=== PATIENT | female | born 1975 | race Asian ===

== ENCOUNTER 2018-12-10 19:37 | Emergency (ER) | payer OTHER ==
--- NOTE | 2018-12-10 19:45 | UC ---
Skin Complaint HPI - HPI Summary HPI Summary: 42 yo right handed female presents with b/l hand pain R>L for the last 4 months. She tells me that she works as a [employer] and for the last 4 months has noticed b/l hand pain with intermittent tingling/numbness in her right thumb and index finger. Pain is worse after using and later in the day. She was seen by her PCP for this and told she had tendinitis and to try taking NSAIDs - she has done this with little relief. Denies specific injury. No elbow, shoulder, or neck pain. Her BP is elevated today. She does have a dx of HTN and has seen her PCP for this, but does not take any medications. She is not having any headaches, dizziness, nausea, vomiting, weakness, SOB, or chest pain. - History of Current Complaint Time Seen by Provider: 12/10/18 19:45 Stated Complaint: ARM PAIN, SWELLING Hx Obtained From: Patient Onset/Duration: Gradual Onset Onset Severity: Mild Current Severity: Mild Pain Intensity: 3 Pain Scale Used: 0-10 Numeric - Allergy/Home Medications Allergies/Adverse Reactions: Allergies Allergy/AdvReac Type Severity Reaction Status Date / Time No Known Allergies Allergy Verified 12/10/18 19:48 Home Medications: Home Medications NK [No Home Medications Reported] 12/10/18 [History Confirmed 12/10/18] PMH/Surg Hx/FS Hx/Imm Hx Cardiovascular History: Hypertension - Surgical History Surgical History: Yes Surgery Procedure, Year, and Place: DENTAL - Family History Known Family History: Positive: Cardiac Disease - Social History Occupation: Employed Full-time Lives: With Family Alcohol Use: None Substance Use Type: None Smoking Status (MU): Never Smoked Tobacco Review of Systems All Other Systems Reviewed And Are Negative: Yes Constitutional: Positive: Negative Skin: Positive: Negative Respiratory: Positive: Negative Cardiovascular: Positive: Negative Neurovascular: Positive: Negative Musculoskeletal: Positive: Other: - b/l hand pain Neurological: Positive: Negative Psychological: Positive: Negative Physical Exam - Summary Physical Exam Summary: GENERAL: NAD. WDWN. No pain distress. SKIN: No rashes, sores, lesions, or open wounds. CHEST: No accessory muscle use. Breathing comfortably and in no distress. CV: Pulses intact radial and ulnar. Cap refill <2seconds MSK: RIGHT WRIST: NTTP. FROM. Strength 5/5 including logger strength. No edema or obvious bony deformities. No snuffbox tenderness. Tinel and phalen positive. LEFT WRIST: NTTP. FROM. Strength 5/5 including logger strength. No edema or obvious bony deformities. No snuffbox tenderness. Tinel and phalen weakly positive. B/L hands: moves all digits FROM without pain. NTTP. NEURO: Alert. Sensations intact hand and all fingers. PSYCH: Age appropriate behavior. Triage Information Reviewed: Yes Vital Signs: Vital Signs: Temp Pulse Resp BP Pulse Ox 98.7 F 84 16 167/105 100 12/10/18 19:45 12/10/18 19:45 12/10/18 19:45 12/10/18 19:45 12/10/18 19:45 Vital Signs Reviewed: Yes Course/Dx - Course Course Of Treatment: XR b/l hands: wet read by myself is negative for acute process at hands or wrists. Suspect mild/early carpal tunnel. She has a wrist brace that she uses, but has not had much relief from this. Advised to rest, apply ice, continue NSAIDs, and continue using her wrist brace. She is requesting a referral to [facility], thus will refer her there for further eval and treatment. Regarding her elevated BP - she does have a dx of HTN, but does not take any medications for this. Recheck BP manually was similar to initial. She is having no symptoms related to her HTN, thus will have her f/u with her PCP for BP control. - Diagnoses Provider Diagnosis: Carpal tunnel syndrome of right wrist Discharge - Sign-Out/Discharge Documenting (check all that apply): Patient Departure All imaging exams completed and their final reports reviewed: No - Discharge Plan Condition: Stable Disposition: HOME Referrals: Andrey Corrales MD [Primary Care Provider] - Tina CARSON,Ponce Alvarado [Medical Doctor] - As Soon As Possible Additional Instructions: If you develop a fever, shortness of breath, chest pain, new or worsening symptoms - please call your PCP or go to the ED immediately. Your blood pressure was high at todays visit. Please see your primary provider within 4 weeks for recheck and re-evaluation. Your X-Rays were normal today. Please call Orthopedics at the number below to schedule an appointment within 1 month for further treatment. - Billing Disposition and Condition Condition: STABLE Disposition: Home - Attestation Statements Provider Attestation: This patient was note seen by me. I was available for consult. IDANIA
[2018-12-10 19:54] VITALS: BP 168/108
--- NOTE | 2018-12-11 07:49 | UC ---
- Progress Note Progress Note: Reviewed imaging, x-ray only notable for soft tissue swelling. No change in management. - EKG/XRAY/CT XRAY: hand Course/Dx - Diagnoses Provider Diagnoses: Carpal tunnel syndrome of right wrist Discharge - Sign-Out/Discharge Documenting (check all that apply): Post-Discharge Follow Up All imaging exams completed and their final reports reviewed: Yes - Discharge Plan Condition: Stable Disposition: HOME Referrals: Andrey Corrales MD [Primary Care Provider] - Tina CARSON,Ponce Alvarado [Medical Doctor] - As Soon As Possible Additional Instructions: If you develop a fever, shortness of breath, chest pain, new or worsening symptoms - please call your PCP or go to the ED immediately. Your blood pressure was high at todays visit. Please see your primary provider within 4 weeks for recheck and re-evaluation. Your X-Rays were normal today. Please call Orthopedics at the number below to schedule an appointment within 1 month for further treatment. - Billing Disposition and Condition Condition: STABLE Disposition: Home
== END 2018-12-10 20:14 | disposition home or self-care (01) ==
LOC: UCEAST 19:37
DX: G56.01 Carpal tunnel syndrome, right upper limb (principal); I10 Essential (primary) hypertension
CPT/HCPCS: 99211; G0463

== ENCOUNTER → 2019-02-04 17:45 | Emergency (ER) | payer OTHER ==
[2019-02-04 17:50] VITALS: BP 188/124
--- NOTE | 2019-02-04 19:08 | ED ---
Upper Extremity Pain - HPI Summary HPI Summary: Patient complains of intermittent right forearm pain 2 months, worse today. Denies trauma. History of tendinitis. Denies fever, cough, sore throat, CP, SOB, N/V city, dull pain, change in urine, change in BM. Denies medical history. - History of Current Complaint Chief Complaint: EDExtremityUpper Stated Complaint: RT HAND INJURY PER PT Time Seen by Provider: 02/04/19 18:32 Hx Obtained From: Patient Hx Last Menstrual Period: BEGINNING NOVEMBER Mechanism Of Injury: Unknown Onset/Duration: Started Weeks Ago Timing: Intermittent Severity Initially: Mild Severity Currently: Moderate Pain Location: Forearm Character: Dull, Aching, Throbbing Aggravating Factor(s): Movement, Flexion Alleviating Factor(s): Nothing Associated Signs & Symptoms: Positive: Negative - Allergies/Home Medications Allergies/Adverse Reactions: Allergies Allergy/AdvReac Type Severity Reaction Status Date / Time No Known Allergies Allergy Verified 02/04/19 17:47 Home Medications: Home Medications Levothyroxine TAB* [Synthroid TAB*] 50 mcg PO DAILY 02/04/19 [History Confirmed 02/04/19] PMH/Surg Hx/FS Hx/Imm Hx Endocrine/Hematology History: Denies: Hx Anticoagulant Therapy Cardiovascular History: Denies: Hx Pacemaker/ICD Respiratory History: Reports: Hx Asthma - seasonal History: Denies: Hx Dialysis Sensory History: Denies: Hx Eye Prosthesis Opthamlomology History: Denies: Hx Legally Blind EENT History: Denies: Hx Deafness Neurological History: Denies: Hx Dementia - Surgical History Surgery Procedure, Year, and Place: DENTAL Infectious Disease History: No Infectious Disease History: Denies: Traveled Outside the [place] in Last 30 Days - Family History Known Family History: Positive: Cardiac Disease - Social History Alcohol Use: None Substance Use Type: Reports: None Smoking Status (MU): Never Smoked Tobacco Review of Systems Constitutional: Negative Eyes: Negative ENT: Negative Cardiovascular: Negative Respiratory: Negative Gastrointestinal: Negative Genitourinary: Negative Musculoskeletal: Other Skin: Negative Neurological: Negative Psychological: Normal All Other Systems Reviewed And Are Negative: Yes Physical Exam - Summary Physical Exam Summary: No ecchymosis, erythema, deformity, swelling, and extra warmth noted to right upper extremity. Normal flexion and extension of fingers and wrist of right hand. Pain with flexion of right elbow with hand in palm down position. Otherwise Normal flexion and extension of right elbow and right shoulder. No pain with palpation of right forearm. PMS intact distally. Triage Information Reviewed: Yes Vital Signs On Initial Exam: Initial Vitals Temp Pulse Resp BP Pulse Ox 98.8 F 76 15 188/124 100 02/04/19 17:47 02/04/19 17:47 02/04/19 17:47 02/04/19 17:47 02/04/19 17:47 Vital Signs Reviewed: Yes Appearance: Positive: Well-Appearing Skin: Positive: Warm Head/Face: Positive: Normal Head/Face Inspection Eyes: Positive: Normal Neck: Positive: Supple Respiratory/Lung Sounds: Positive: Clear to Auscultation Cardiovascular: Positive: Normal Abdomen Description: Positive: Nontender Musculoskeletal: Positive: Normal Neurological: Positive: Normal Psychiatric: Positive: Normal AVPU Assessment: Alert - Bandar Coma Scale Best Eye Response: 4 - Spontaneous Best Motor Response: 6 - Obeys Commands Best Verbal Response: 5 - Oriented Coma Scale Total: 15 Diagnostics - Vital Signs Vital Signs Temp Pulse Resp BP Pulse Ox 02/04/19 17:47 98.8 F 76 15 188/124 100 - Laboratory Lab Statement: Any lab studies that have been ordered have been reviewed, and results considered in the medical decision making process. Course/Dx - Course Course Of Treatment: Patient complains of intermittent right forearm pain 2 months, worse today. Denies trauma. History of tendinitis. Denies fever, cough, sore throat, CP, SOB, N/V city, dull pain, change in urine, change in BM. Denies medical history. Vital signs within normal limits. Symptoms consistent with tendinitis. - Diagnoses Provider Diagnoses: Right tennis elbow Discharge ED - Sign-Out/Discharge Documenting (check all that apply): Patient Departure Patient Received Moderate/Deep Sedation with Procedure: No - Discharge Plan Condition: Stable Disposition: HOME Patient Education Materials: Tennis Elbow (ED) Referrals: Andrey Corrales MD [Primary Care Provider] - Kemar Evans MD [Medical Doctor] - Additional Instructions: Rest your right arm. Take ibuprofen 600 mg every 6 hours for 2 days. Wear a tennis elbow brace that you can get at any pharmacy, especially when you sleep. If symptoms persist more than 2 weeks follow-up with orthopedics Dr. Evans for further evaluation. - Billing Disposition and Condition Condition: STABLE Disposition: Home - Attestation Statements Provider Attestation: I was available for consultation for this patient. I did not evaluate the patient, or participate in any medical decision making or disposition decisions unless I am specifically named in the chart as having consulted on the patient. If I have consulted on the patient, please see my own ED note on the patient encounter. Poncho Verdugo MD
== END | disposition home or self-care (01) ==
LOC: ED 17:45
DX: M77.11 Lateral epicondylitis, right elbow (principal); Z79.899 Other long term (current) drug therapy
CPT/HCPCS: 99281

== ENCOUNTER 2019-02-09 13:57 | Emergency (ER) | payer OTHER ==
[2019-02-09 14:13] VITALS: BP 168/100
== END 2019-02-09 15:37 | disposition left against medical advice (07) ==
LOC: ED 13:57
DX: Z53.21 Procedure and treatment not carried out due to patient leaving prior to being seen by health care provider (principal)
CPT/HCPCS: 99281

== ENCOUNTER 2019-02-12 07:55 | Emergency (ER) | payer OTHER ==
[2019-02-12] MEDS ORDERED: Dexamethasone IV* 4 MG/ML 1 ML (4 MG) IM ONE (08:35)
[2019-02-12] MEDS ORDERED: Ketorolac *IM* INJ* 60 MG/2 ML VIAL IM ONE (08:35)
--- NOTE | 2019-02-12 08:42 | ED ---
Upper Extremity Pain - HPI Summary HPI Summary: Pt is a 43 y/o F presenting to the ED with a chief complaint of R arm pain initially onset a couple of days ago. She states she swung her R arm backwards and heard a click, and the pain has since not gone away. She reports pain in the upper arm and elbow, and weakness in her forearm. - History of Current Complaint Chief Complaint: EDExtremityUpper Stated Complaint: ELBOW PAIN PER PT Time Seen by Provider: 02/12/19 08:23 Hx Obtained From: Patient Hx Last Menstrual Period: BEGINNING NOVEMBER Mechanism Of Injury: Unknown Onset/Duration: Started Days Ago, Still Present Timing: Constant, Lasting Days Severity Initially: Moderate Severity Currently: Moderate Pain Location: Elbow, Forearm Character: Aching Aggravating Factor(s): Nothing Alleviating Factor(s): Nothing Associated Signs & Symptoms: Positive: Weakness - Allergies/Home Medications Allergies/Adverse Reactions: Allergies Allergy/AdvReac Type Severity Reaction Status Date / Time amoxicillin Allergy GI Upset Verified 02/12/19 08:01 PMH/Surg Hx/FS Hx/Imm Hx Previously Healthy: Yes Endocrine/Hematology History: Denies: Hx Anticoagulant Therapy Cardiovascular History: Denies: Hx Pacemaker/ICD Respiratory History: Reports: Hx Asthma - seasonal History: Denies: Hx Dialysis Sensory History: Denies: Hx Eye Prosthesis, Hx Legally Blind, Hx Deafness Opthamlomology History: Denies: Hx Eye Prosthesis, Hx Legally Blind Neurological History: Denies: Hx Dementia - Surgical History Surgery Procedure, Year, and Place: DENTAL Infectious Disease History: No Infectious Disease History: Denies: Traveled Outside the [place] in Last 30 Days - Family History Known Family History: Positive: Cardiac Disease - Social History Alcohol Use: None Hx Substance Use: No Substance Use Type: Reports: None Hx Tobacco Use: No Smoking Status (MU): Never Smoked Tobacco Review of Systems Positive: Myalgia Positive: Weakness All Other Systems Reviewed And Are Negative: Yes Physical Exam - Summary Physical Exam Summary: VITAL SIGNS: Reviewed. GENERAL: Patient is a well-developed and nourished female who is lying comfortable in the stretcher. Patient is not in any acute respiratory distress. HEAD AND FACE: No signs of trauma. No ecchymosis, hematomas or skull depressions. No sinus tenderness. EYES: PERRLA, EOMI x 2, No injected conjunctiva, no nystagmus. EARS: Hearing grossly intact. Ear canals and tympanic membranes are within normal limits. MOUTH: Oropharynx within normal limits. NECK: Supple, trachea is midline, no adenopathy, no JVD, no carotid bruit, no c- spine tenderness, neck with full ROM. CHEST: Symmetric, no tenderness at palpation. LUNGS: Clear to auscultation bilaterally. No wheezing or crackles. CVS: Regular rate and rhythm, S1 and S2 present, no murmurs or gallops appreciated. ABDOMEN: Soft, non-tender. No signs of distention. No rebound, no guarding, and no masses palpated. Bowel sounds are normal. EXTREMITIES: FROM in all major joints, no edema, no cyanosis or clubbing. No deformity, weakness, or hematomas. There are good pulses and good capillary refill. NEURO: Alert and oriented x 3. No acute neurological deficits. Speech is normal and follows commands. SKIN: Dry and warm. Triage Information Reviewed: Yes Vital Signs On Initial Exam: Initial Vitals Temp Pulse Resp BP Pulse Ox 98.9 F 87 18 156/114 98 02/12/19 07:58 02/12/19 07:58 02/12/19 07:58 02/12/19 07:58 02/12/19 07:58 Vital Signs Reviewed: Yes Diagnostics - Vital Signs Vital Signs Temp Pulse Resp BP Pulse Ox 02/12/19 07:58 98.9 F 87 18 156/114 98 - Laboratory Lab Statement: Any lab studies that have been ordered have been reviewed, and results considered in the medical decision making process. - Radiology Elbow XR Radiology Interpretation Completed By: Radiologist Summary of Radiographic Findings: No acute osseous injury. If symptoms persist, recommend repeat imaging. ED physician has reviewed this report. - Ultrasound RUE US Ultrasound Interpretation Completed By: Radiologist Summary of Ultrasound Findings: No R upper extremity DVT. ED physician has reviewed this report. Course/Dx - Course Assessment/Plan: Patient is a 43-year-old female who presents to the emergency department with a chief complaint of right upper extremity pain. She reports that the pain is mostly in the right elbow. Right elbow x-ray impression: No acute injury. Right upper extremity ultrasound impression: No right upper extremity DVT. In the ED course the patient was given Toradol and Decadron. After these medications the patient has significant relief. However the patient still stated that she thinks she has a tendon rupture. Therefore I will discharge the patient home with follow-up with orthopedics and a prescription for ibuprofen and Medrol Dosepak. I discussed all the findings and test results with the patient. Patient was instructed to return to the emergency room immediately if any of the symptoms return or worsen. Plan of care was discussed with the patient and understands and agrees. All questions were answered at patient satisfaction. There were no further complaints or concerns. Lung exam before discharge: CTA B/L. Good air exchange. No wheezing or crackles heard. CVS: S1 and S2 present. No murmurs appreciated. Patient is alert and oriented x 3. Patient is hemodynamically stable. Patient will be discharged home with follow up PCP in the next 2-3 days - Diagnoses Differential Diagnosis/HQI/PQRI: Positive: Arthritis, Bursitis, Contusion, Fracture (Closed), Strain, Sprain Provider Diagnoses: Elbow pain Discharge ED - Sign-Out/Discharge Documenting (check all that apply): Patient Departure Patient Received Moderate/Deep Sedation with Procedure: No - Discharge Plan Condition: Stable Disposition: HOME Prescriptions: Ibuprofen TAB* [Motrin TAB* 600 MG] 600 mg PO Q8H PRN #30 tab PRN Reason: Pain - Moderate methylPREDNISolone [Medrol Dosepak 4 MG*] 0 mg PO .SEE SIMÓN INSTRUCTION #1 simón Referrals: Andrey Corrales MD [Primary Care Provider] - Kemar Rico MD [Medical Doctor] - Additional Instructions: Please follow up with Dr. Rico of orthopedics within the next 2-3 days. Follow up with your primary care provider as well. Return to the emergency department with any new or worsening symptoms. - Billing Disposition and Condition Condition: STABLE Disposition: Home - Attestation Statements Document Initiated by Laceyibe: Yes Documenting Scribe: Kandi Gillespie Provider For Whom Erwin is Documenting (Include Credential): Azael Ballesteros MD. Scribe Attestation: Kandi Smith scribed for Azael Ballesteros MD. on 02/15/19 at 1122. Scribe Documentation Reviewed: Yes Provider Attestation: The documentation as recorded by the laceyibeKandi accurately reflects the service I personally performed and the decisions made by Azael alvarez MD. Status of Scribe Document: Viewed
[2019-02-12 11:20] VITALS: BP 173/103
== END 2019-02-12 11:12 | disposition home or self-care (01) ==
LOC: ED 07:55
DX: M25.521 Pain in right elbow (principal); Z88.1 Allergy status to other antibiotic agents; Z79.899 Other long term (current) drug therapy
CPT/HCPCS: 96372; 99282; J1100; J1885

== ENCOUNTER 2019-03-14 18:45 | Emergency (ER) | payer OTHER ==
--- OUTSIDE RECORDS SUMMARY | 2019-03-14 19:11 | XMS REPORT | Continuity of Care Document ---
:1975 External Reference #:[id number] Author Name LANA Henry Address [address] [place] [address] Problems Active Problems Provider Date Chronic kidney disease Onset: 11/18/2017 Caregiver difficulty performing caretaking Onset: 11/03/2015 Depressive disorder Onset: 11/03/2015 Obesity Onset: 06/21/2014 Inactive Problems Bacterial vaginosis Onset: 01/11/2019 Inactive: 01/11/2019 Hypothyroidism Onset: 01/11/2019 Inactive: 01/11/2019 Benign essential hypertension Onset: 01/04/2019 Inactive: 01/04/2019 Dysuria Onset: 01/04/2019 Inactive: 01/04/2019 Gynecological examination abnormal Onset: 01/04/2019 Inactive: 01/04/2019 Serum TSH level abnormal Onset: 01/04/2019 Inactive: 01/04/2019 Increased frequency of urination Onset: 01/04/2019 Inactive: 01/04/2019 Vaginal discharge problem Onset: 01/04/2019 Inactive: 01/04/2019 Adult health examination Onset: 10/30/2018 Inactive: 10/30/2018 Body mass index 25-29 - overweight Onset: 10/30/2018 Inactive: 10/30/2018 Social History Type Date Description Comments Sex Unknown Allergies, Adverse Reactions, Alerts Description No Information Available Medications Active Medications SIG Qnty Indications Ordering Date Provider Trazodone HCL 1 at bedtime 90tabs G47.00 LANA Henry 02/26/2019 50mg oral; use as Tablets needed before bed to improve sleep Levothyroxine Sodium 1 daily Oral; 90tabs Unknown 01/11/2019 take in the 50mcg Tablets morning before you eat Proventil HFA Inhalation; 2 1units Unknown 09/25/2016 108(90Base) puffs Q 4h prn mcg/Act Aerosol Fluticasone Propionate 2 daily Nasal 16units Unknown 10/06/2015 50mcg/Act Suspension Blood Pressure Monitor 1 External 1units Unknown 01/30/2015 Talking Auto-Inflation Med Cuff Misc History Medications Metronidazole 1 twice daily Oral; 14tabs Unknown 01/11/2019 - 500mg Tablets DO Not consume 01/18/2019 alcoholic beverages or alcohol containing liquid medications while taking Flagyl Medications Administered in Office Medication SIG Qnty Indications Ordering Provider Date TB Intradermal Test Unknown 11/18/2017 Injection TB Intradermal Test Unknown 10/29/2017 Injection Immunizations CPT Code Status Date Vaccine Lot # [id number] Given 08/26/2016 Tdap - Boostrix/Adacel Vital Signs Date Vital Result Comment 02/26/2019 11:12am BP Systolic 140 mmHg BP Diastolic 100 mmHg Heart Rate 92 /min Body Temperature 98.5 F O2 % BldC Oximetry 99 % 01/11/2019 1:22pm BP Systolic 142 mmHg Heart Rate 89 /min Body Temperature 99.1 F O2 % BldC Oximetry 98 % Results Test Date Facility Test Result H/L Range Note Laboratory test [facility] TSH (Thyroid <pending> finding [address] Stim Horm) [place] [address] [phone] Urobilinogen-Ua N2N/CCD Import Urobilinogen-Ua neg Negative - 019 Negative SP Grav-Ua N2N/CCD Import SP Grav-Ua <=1.005 Low 1.003 - 019 1.030 Protein-Ua N2N/CCD Import Protein-Ua Negative 019 PH-Ua N2N/CCD Import PH-Ua 6.5 _ 5 - 7 019 Nitrite-Ua N2N/CCD Import Nitrite-Ua Negative Negative - 019 Negative Qual Leuk Est-Ua N2N/CCD Import Leuk Est-Ua TR High Negative - 019 Negative Qual Ketones-Ua N2N/CCD Import Ketones-Ua Negative Negative - 019 Negative Qual Glucose-Ua N2N/CCD Import Glucose-Ua Negative Negative - 019 Negative Qual Blood-Ua N2N/CCD Import Blood-Ua Negative Negative - 019 Negative Qual Bilirubin-Ua N2N/CCD Import Bilirubin-Ua Negative Negative - 019 Negative Qual BP Goal N2N/CCD Import BP Goal <130/80 019 TSH N2N/CCD Import TSH 29.09 High 0.34-5.60 019 mcIU/mL mcIU/mL T4, Free N2N/CCD Import T4, Free 0.58 ng/dL Low 0.61-1.12 019 ng/dL T3 Total N2N/CCD Import T3 Total 72 ng/dL Low 87-178 019 ng/dL WBC-Ua N2N/CCD Import WBC-Ua Trace(0-5/ Absent 019 hpf) Appear-Ua N2N/CCD Import Appear-Ua Clear 019 Bacteria-Ua N2N/CCD Import Bacteria-Ua 1+ Abnormal Absent 019 Bilirubin-Ua N2N/CCD Import Bilirubin-Ua Negative Negative 019 Blood-Ua N2N/CCD Import Blood-Ua Negative Negative 019 Color-Ua N2N/CCD Import Color-Ua Straw 019 Epith-Ua N2N/CCD Import Epith-Ua Present Abnormal Absent 019 Glucose-Ua N2N/CCD Import Glucose-Ua Negative Negative 019 Ketones-Ua N2N/CCD Import Ketones-Ua Negative Negative 019 Leuk Est-Ua N2N/CCD Import Leuk Est-Ua Trace Abnormal Negative 019 Nitrite-Ua N2N/CCD Import Nitrite-Ua Negative Negative 019 PH-Ua N2N/CCD Import PH-Ua 6.0 _ 5-9 019 Protein-Ua N2N/CCD Import Protein-Ua Negative Negative 019 RBC-Ua N2N/CCD Import RBC-Ua Trace(0-2/ Absent 019 hpf) SP Grav-Ua N2N/CCD Import SP Grav-Ua 1.008 _ Low 1.010-1.03 019 0 Urobilinogen-Ua N2N/CCD Import Urobilinogen-Ua Negative Negative 019 Triglycerides N2N/CCD Import Triglycerides 91 mg/dL 019 Sodium N2N/CCD Import Sodium 138 mmol/L 135-145 019 mmol/L Potassium N2N/CCD Import Potassium 4.3 mmol/L 3.5-5.0 019 mmol/L LDL Cholesterol N2N/CCD Import LDL Cholesterol 128 mg/dL 019 HDL Cholesterol N2N/CCD Import HDL Cholesterol 52.1 mg/dL 019 Glucose N2N/CCD Import Glucose 94 mg/dL 70-100 019 mg/dL GFR Non Afr Amer N2N/CCD Import GFR Non Afr Amer 95.4 _ >60 019 GFR Afr Amer N2N/CCD Import GFR Afr Amer 115.4 _ >60 019 Creatinine N2N/CCD Import Creatinine 0.68 mg/dL 0.51-0.95 019 mg/dL Co2 N2N/CCD Import Co2 29 mmol/L 22-32 019 mmol/L Cholesterol N2N/CCD Import Cholesterol 198 mg/dL 019 Chloride N2N/CCD Import Chloride 103 mmol/L 101-111 019 mmol/L Calcium N2N/CCD Import Calcium 9.6 mg/dL 8.6-10.3 019 mg/dL BUN/Creat Ratio N2N/CCD Import BUN/Creat Ratio 19.1 _ 8-20 019 BUN N2N/CCD Import BUN 13 mg/dL 6-24 mg/dL 019 Anion Gap N2N/CCD Import Anion Gap 6 mmol/L 2-11 019 mmol/L Bharti N2N/CCD Import Bharti 10/30/18 019 HIV Test Offered N2N/CCD Import HIV Test Offered Declined 019 Health Care Proxy N2N/CCD Import Health Care Disc, form 019 Proxy given Creat, Ur Random N2N/CCD Import Creat, Ur Random 200 _ 019 Microalb/CR Ratio N2N/CCD Import Microalb/CR 30-300 019 Ratio Microalbumin, Ur N2N/CCD Import Microalbumin, Ur 150 _ 019 Microalbumin N2N/CCD Import Microalbumin abnormal Interpretation 019 Interpretation Procedures Description No Information Available Medical Devices Description No Information Available Encounters Type Date Location Provider Dx Diagnosis Office Visit 02/26/2019 11:00a [facility] LANA Henry E03.9 Hypothyroidism, unspecified G47.00 Insomnia, unspecified Assessments Date Code Description Provider 02/26/2019 E03.9 Hypothyroidism, unspecified LANA Henry 02/26/2019 G47.00 Insomnia, unspecified LANA Henry Plan of Treatment 02/26/2019 - LEILA HenryPE03.9 Hypothyroidism, unspecifiedComments:discussed importance of taking medication 45 minutes before eating any food will check TSH today will call patient if levothyroxine needs to be ntupllvqU32.00 Insomnia , unspecifiedNew Medication:Trazodone HCL 50 mg - 1 at bedtime oral; use as needed before bed to improve sleepComments:discussed insomnia and sleep hygeine at lengthstop benadryl and start taking trazadone every other night to improve sleeping return if no imporvement Functional Status Description No Information Available Mental Status Description No Information Available Referrals Description No Information Available
--- OUTSIDE RECORDS SUMMARY | 2019-03-14 19:11 | XMS REPORT | Continuity of Care Document ---
:1975 External Reference #:[id number] Author Name Tamia Morrow M.D. 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 [phone] Problems Description No Information Available Social History Type Date Description Comments Sex Unknown ETOH Use Denies alcohol use Tobacco Use Start: Unknown Patient has never smoked Smoking Status Reviewed: 02/22/19 Patient has never smoked Exercise Type/Frequency Does not exercise Allergies, Adverse Reactions, Alerts Active Allergies Reaction Severity Comments Date Amoxicillin 02/22/2019 Medications Active Medications SIG Qnty Indications Ordering Provider Date Ibuprofen Unknown Steroids \\ Unknown Immunizations Description No Information Available Vital Signs Date Vital Result Comment 02/22/2019 1:15pm Height 62 inches 5'2" Weight 148.00 lb Heart Rate 96 /min BP Systolic 150 mmHg BP Diastolic 102 mmHg BMI (Body Mass Index) 27.1 kg/m2 Results Description No Information Available Procedures Description No Information Available Medical Devices Description No Information Available Encounters Description No Information Available Assessments Date Code Description Provider 02/22/2019 M25.522 Pain in left elbow Tamia Morrow M.D. 02/22/2019 M25.521 Pain in right elbow Tamia Morrow M.D. Plan of Treatment 02/22/2019 - Tamia Morrow M.D.M25.522 Pain in left elbowNew Orders:EMG w/ Nerve Conduct Study, Upper, Ordered: 02/22/19Follow up:Follow up: after testing is completed Follow up:M25.521 Pain in right elbow Functional Status Description No Information Available Mental Status Description No Information Available Referrals Description No Information Available
--- OUTSIDE RECORDS SUMMARY | 2019-03-14 19:11 | XMS REPORT | Continuity of Care Document ---
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 Problems Description No Information Available Social History Type Date Description Comments Sex Unknown ETOH Use Denies alcohol use Tobacco Use Start: Unknown Patient has never smoked Smoking Status Reviewed: 02/24/19 Patient has never smoked Exercise Type/Frequency Does not exercise Allergies, Adverse Reactions, Alerts Active Allergies Reaction Severity Comments Date Amoxicillin 02/22/2019 Medications Active Medications SIG Qnty Indications Ordering Provider Date Ibuprofen Unknown Immunizations Description No Information Available Vital Signs Date Vital Result Comment 02/24/2019 10:03am Height 62 inches 5'2" Weight 148.00 lb Heart Rate 96 /min BP Systolic 144 mmHg BP Diastolic 88 mmHg BMI (Body Mass Index) 27.1 kg/m2 02/22/2019 1:15pm Height 62 inches 5'2" Weight 148.00 lb Heart Rate 96 /min BP Systolic 150 mmHg BP Diastolic 102 mmHg BMI (Body Mass Index) 27.1 kg/m2 Results Description No Information Available Procedures Description No Information Available Medical Devices Description No Information Available Encounters Description No Information Available Assessments Date Code Description Provider 02/24/2019 M25.522 Pain in left elbow Jaja De La OLUIS ANGEL 02/24/2019 M25.521 Pain in right elbow Jaja Bitting, LUIS ANGEL 02/22/2019 M25.522 Pain in left elbow Tamia Morrow M.D. 02/22/2019 M25.521 Pain in right elbow Tamia Morrow M.D. Plan of Treatment 02/24/2019 - Jaja De La O, [facility]-CM25.522 Pain in left elbowFollow up:Follow up : after testing is wojbrhdalJ05.521 Pain in right elbow Functional Status Description No Information Available Mental Status Description No Information Available Referrals Description No Information Available
--- OUTSIDE RECORDS SUMMARY | 2019-03-14 19:11 | XMS REPORT | Continuity of Care Document ---
:1975 External Reference #:[id number] Author Name LUIS ANGEL Carranza (transmitted by agent of provider Nia Baltazar) Address [address] [place] [address] Care Team Providers Name Role Phone Andrey Corrales MD - Family Medicine Care Team Information Visitor Services Representative Problems Description No Information Available Social History Type Date Description Comments Sex Unknown ETOH Use Denies alcohol use Tobacco Use Start: Unknown Patient has never smoked Smoking Status Reviewed: 03/10/19 Patient has never smoked Exercise Type/Frequency Does not exercise Allergies, Adverse Reactions, Alerts Active Allergies Reaction Severity Comments Date Amoxicillin 02/22/2019 Medications Active Medications SIG Qnty Indications Ordering Provider Date Ibuprofen Unknown Immunizations Description No Information Available Vital Signs Date Vital Result Comment 03/10/2019 1:03pm Height 62 inches 5'2" Weight 148.00 lb Heart Rate 92 /min BP Systolic 144 mmHg BP Diastolic 94 mmHg BMI (Body Mass Index) 27.1 kg/m2 02/24/2019 10:03am Height 62 inches 5'2" Weight 148.00 lb Heart Rate 96 /min BP Systolic 144 mmHg BP Diastolic 88 mmHg BMI (Body Mass Index) 27.1 kg/m2 Results Test Date Facility Test Result H/L Range Note Arthritis Panel 02/24/2019 [facility] Uric Acid 3.0 mg/dL Normal 2.3-6.[address] [place] [address] [phone] Rheumatoid Factor < 10 IU/mL Normal <15 Erythrocyte Sed Rate 20 mm/Hr High 0-19 Anti-Nuclear Antibody 1.3 U High 1 Cyclic Citrullinated Peptide <15.6 U 2 Interpretation See Comment 3 1 Interpretation: Weak Positive (1.1-2.9) REFERENCE VALUE <=1.0 (Negative) 2 REFERENCE VALUE <20.0 (Negative) 3 Tests for antibodies to dsDNA and BRANDON antigens are not performed automatically unless the ROMAN result is > or = 3.0 U. Studies performed at [facility] indicate that positive ROAMN results <3.0 U are rarely accompanied by positive second order tests. Test Performed by: [facility] [place] [address] Stenographer Secretary: Saul Lehman M.D. Ph.D.; IA# [id number] Procedures Description No Information Available Medical Devices Description No Information Available Encounters Type Date Location Provider Dx Diagnosis Office Visit 02/24/2019 [facility]aja De La O, M25.522 [facility] in right [facility] Office Visit 02/22/2019 1:00p [facility] Tamia Morrow M25.522 Pain in left at [place] elbow M25.521 Pain in right elbow Assessments Date Code Description Provider 03/10/2019 M25.521 Pain in right elbow Jaja LUIS ANGEL De La O 02/24/2019 M25.522 Pain in left elbow Jaja Jaylyn, LUIS ANGEL 02/24/2019 M25.521 Pain in right elbow Jaja Jaylyn, LUIS ANGEL 02/22/2019 M25.522 Pain in left elbow Tamia Morrow M.D. 02/22/2019 M25.521 Pain in right elbow Tamia Morrow M.D. Plan of Treatment Future Appointment(s):04/21/2019 1:15 pm - Tamia Morrow M.D. at [facility] [place]/10/2019 - AVERY CarranzaCM25.521 Pain in right elbowNew Therapy:Physical TherapyReferral:Jarrod Fraser MD, RheumatologyFollow up:Follow up: 6 weeks Functional Status Description No Information Available Mental Status Description No Information Available Referrals Refer to Dr Reason for Referral Status Appt Date Jarrod Fraser MD Weak positive ROMAN, slightly elevated ESR. Created Multi-joint discomfort. [address] [facility] [place] [address] [place] [address] [phone]
--- OUTSIDE RECORDS SUMMARY | 2019-03-14 19:11 | XMS REPORT | Continuity of Care Document ---
:1975 External Reference #:[id number] Author Name LANA Henry Address [address] [place] [address] Problems Active Problems Provider Date Chronic kidney [...] CPT Code Status Date Vaccine Lot # [id number] Given 08/26/2016 Tdap - Boostrix/Adacel Vital Signs [...] Test Result H/L Range Note Laboratory test [facility] TSH (Thyroid 4.06 Normal 0.34-5.60 1 finding [address] Stim Horm) mcIU/[place] [address] [phone] Urobilinogen-Ua N2N/CCD Import Urobilinogen-Ua neg Negative - [...] Import Microalb/CR 30-300 019 Ratio Microalbumin, Ur 06/14/2 N2N/CCD Import Microalbumin, Ur 150 _ 019 Microalbumin N2N/CCD Import Microalbumin abnormal Interpretation 019 Interpretation 1 [id number] Procedures Description No Information Available Medical Devices [...] call patient if levothyroxine needs to be ifiisaklM65.00 Insomnia , unspecifiedNew Medication:Trazodone HCL 50 mg [...]
--- NOTE | 2019-03-14 20:02 | ED ---
Upper Extremity Pain - HPI Summary HPI Summary: 43 yo female presents with [facility] with right elbow pain. She tells me that about 1 month ago she was hammering a nail and noticed some pain from her right wrist extending into her right lateral elbow. She has been taking ibuprofen with little relief of her discomfort. She is right handed. She states that she thinks the area is swollen. Denies numbness or tingling. - History of Current Complaint Chief Complaint: EDExtremityUpper Stated Complaint: RT ELBOW SWOLLEN AND PAIN PER PT Time Seen by Provider: 03/14/19 20:02 Hx Obtained From: Patient Hx Last Menstrual Period: BEGINNING NOVEMBER Severity Initially: Moderate Severity Currently: Moderate - Allergies/Home Medications Allergies/Adverse Reactions: Allergies Allergy/AdvReac Type Severity Reaction Status Date / Time amoxicillin Allergy GI Upset Verified 02/12/19 08:01 PMH/Surg Hx/FS Hx/Imm Hx Endocrine/Hematology History: Denies: Hx Anticoagulant Therapy, Hx Diabetes Cardiovascular History: Denies: Hx Pacemaker/ICD Respiratory History: Reports: Hx Asthma - seasonal History: Denies: Hx Dialysis Sensory History: Denies: Hx Eye Prosthesis, Hx Legally Blind, Hx Deafness Opthamlomology History: Denies: Hx Eye Prosthesis, Hx Legally Blind Neurological History: Denies: Hx Dementia - Surgical History Surgical History: Yes Surgery Procedure, Year, and Place: DENTAL Infectious Disease History: No Infectious Disease History: Denies: Traveled Outside the [place] in Last 30 Days - Family History Known Family History: Positive: Cardiac Disease - Social History Lives: With Family Alcohol Use: None Hx Substance Use: No Substance Use Type: Reports: None Hx Tobacco Use: No Smoking Status (MU): Never Smoked Tobacco Review of Systems Constitutional: Negative Cardiovascular: Negative Respiratory: Negative Gastrointestinal: Negative Musculoskeletal: Other - Right elbow pain Skin: Negative Neurological: Negative Psychological: Normal All Other Systems Reviewed And Are Negative: No Physical Exam - Summary Physical Exam Summary: GENERAL: NAD. WDWN. No pain distress. SKIN: No rashes, sores, lesions, or open wounds. CHEST: No accessory muscle use. Breathing comfortably and in no distress. CV: Pulses intact radial and ulnar. Cap refill <2seconds MSK: RIGHT ELBOW: FROM without pain. Mild TTP about lateral epicondyle. Pain reproduced with middle finger extension against resistance. 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 No edema or obvious bony deformities. NEURO: Alert. Sensations intact hand and all fingers. PSYCH: Age appropriate behavior. Triage Information Reviewed: Yes Vital Signs On Initial Exam: Initial Vitals Temp Pulse Resp BP Pulse Ox 99.9 F 87 16 173/107 98 03/14/19 18:59 03/14/19 18:59 03/14/19 18:59 03/14/19 18:59 03/14/19 18:59 Vital Signs Reviewed: Yes Procedures - Sedation Patient Received Moderate/Deep Sedation with Procedure: No Diagnostics - Vital Signs Vital Signs Temp Pulse Resp BP Pulse Ox 03/14/19 18:59 99.9 F 87 16 173/107 98 - Laboratory Lab Statement: Any lab studies that have been ordered have been reviewed, and results considered in the medical decision making process. Course/Dx - Course Course Of Treatment: Pt declined XR today. Suspect epicondylitis of right elbow. She is requesting steroids at this time, will rx for medrol dose simón and have her f/u with Orthopedics and physical therapy for further treatment. - Diagnoses Provider Diagnoses: Lateral epicondylitis Discharge ED - Sign-Out/Discharge Documenting (check all that apply): Patient Departure - Discharge Plan Condition: Stable Disposition: HOME Prescriptions: methylPREDNISolone [Medrol Dosepak 4 MG*] 0 mg PO .SEE SIMÓN INSTRUCTION #1 simón Patient Education Materials: Tennis Elbow (ED) Referrals: Andrey Corrales MD [Primary Care Provider] - Tamia Morrow MD [Medical Doctor] - 1 Week Additional Instructions: If you develop a fever, shortness of breath, chest pain, new or worsening symptoms - please call your PCP or go to the ED immediately. Your blood pressure was high at todays visit. Please see your primary provider within 4 weeks for recheck and re-evaluation. 1) Rest your elbow 2) Take the steroids as prescribed 3) Please call Orthopedics at the number below to schedule an appointment for a recheck in 1 week - Billing Disposition and Condition Condition: STABLE Disposition: Home
[2019-03-14 21:54] VITALS: BP 178/82
== END 2019-03-14 21:10 | disposition home or self-care (01) ==
LOC: ED 18:45
DX: M77.11 Lateral epicondylitis, right elbow (principal); Z88.1 Allergy status to other antibiotic agents
CPT/HCPCS: 99281

== ENCOUNTER 2019-04-15 20:21 | Emergency (ER) | payer OTHER ==
[2019-04-15] MEDS ORDERED: Ketorolac INJ* 30 MG/ML 1 ML VIAL IM ONE (21:25)
--- NOTE | 2019-04-15 21:25 | ED ---
Upper Extremity Pain - HPI Summary HPI Summary: 43 year old female presents with wrist and elbow pain for the past week. She admits some numbness in her little and ring finger. She states that sometimes she has pain in her left arm. She states that she was in the car for 10 hours and the pain got worse. She states that she also has pain over the thumb sometimes. She says that sometimes she as numbness over the palm. She has pain over the radial aspect of her right wrist sometimes. No injury. She is not currently working. Has no medical conditions. She is right-handed. - History of Current Complaint Chief Complaint: EDExtremityUpper Stated Complaint: PAIN IN BOTH ARMS PER PT Time Seen by Provider: 04/15/19 21:06 Hx Last Menstrual Period: BEGINNING NOVEMBER - Allergies/Home Medications Allergies/Adverse Reactions: Allergies Allergy/AdvReac Type Severity Reaction Status Date / Time amoxicillin Allergy GI Upset Verified 04/15/19 20:25 PMH/Surg Hx/FS Hx/Imm Hx Endocrine/Hematology History: Denies: Hx Anticoagulant Therapy, Hx Diabetes Cardiovascular History: Denies: Hx Pacemaker/ICD Respiratory History: Reports: Hx Asthma - seasonal History: Denies: Hx Dialysis Sensory History: Denies: Hx Eye Prosthesis, Hx Legally Blind, Hx Deafness Opthamlomology History: Denies: Hx Eye Prosthesis, Hx Legally Blind Neurological History: Denies: Hx Dementia - Surgical History Surgery Procedure, Year, and Place: DENTAL Infectious Disease History: No Infectious Disease History: Denies: Traveled Outside the [place] in Last 30 Days - Family History Known Family History: Positive: Cardiac Disease - Social History Alcohol Use: None Hx Substance Use: No Substance Use Type: Reports: None Hx Tobacco Use: No Smoking Status (MU): Never Smoked Tobacco Review of Systems Negative: Fever Negative: Chest Pain Negative: Shortness Of Breath Positive: Myalgia - right elbow and wrist pain All Other Systems Reviewed And Are Negative: Yes Physical Exam Triage Information Reviewed: Yes Vital Signs On Initial Exam: Initial Vitals Temp Pulse Resp BP Pulse Ox 98.0 F 82 18 178/121 99 04/15/19 20:26 04/15/19 20:26 04/15/19 20:26 04/15/19 20:26 04/15/19 20:26 Vital Signs Reviewed: Yes Appearance: Positive: Well-Appearing Skin: Positive: Warm, Dry Head/Face: Positive: Normal Head/Face Inspection Eyes: Positive: Normal, Conjunctiva Clear ENT: Positive: Pharynx normal Respiratory/Lung Sounds: Positive: Clear to Auscultation, Breath Sounds Present Cardiovascular: Positive: Normal, RRR Musculoskeletal: Positive: Strength/ROM Intact - bilateral arms, Other - tenderness over lateral epicondyle, sensation grossly intact, tenderness with wrist extension, good pulses Neurological: Positive: Normal Psychiatric: Positive: Normal Procedures - Sedation Patient Received Moderate/Deep Sedation with Procedure: No Diagnostics - Vital Signs Vital Signs Temp Pulse Resp BP Pulse Ox 04/15/19 20:26 98.0 F 82 18 178/121 99 - Laboratory Lab Statement: Any lab studies that have been ordered have been reviewed, and results considered in the medical decision making process. Course/Dx - Course Course Of Treatment: 43 year old female presents with wrist and elbow pain for the past week. She admits some numbness in her little and ring finger. She states that sometimes she has pain in her left arm. She states that she was in the car for 10 hours and the pain got worse. She states that she also has pain over the thumb sometimes. She says that sometimes she as numbness over the palm. She has pain over the radial aspect of her right wrist sometimes. No injury. She is not currently working. Has no medical conditions. She is right -handed. On exam tenderness over the epicondyle. Neurovascular intact. 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 Negative Phalen. Gave David and wrist splint for wrist. Patient requesting same for left so gave such. Will have follow up with orthopedic. Patient understands and agrees the plan. - Diagnoses Differential Diagnosis/HQI/PQRI: Positive: Strain, Sprain, Other - epicondylitis , Provider Diagnoses: Right arm pain Discharge ED - Sign-Out/Discharge Documenting (check all that apply): Patient Departure - Discharge Plan Condition: Good Disposition: HOME Patient Education Materials: R.I.C.E. Treatment (ED) Referrals: Andrey Corrales MD [Primary Care Provider] - Jim Matthews MD [Medical Doctor] - Additional Instructions: ice, elevate use david on the area take ibuprofen every 6 hours for pain follow up with ortho Return to ED if develop any new or worsening symptoms - Billing Disposition and Condition Condition: GOOD Disposition: Home
[2019-04-15 21:41] VITALS: BP 169/101
--- OUTSIDE RECORDS SUMMARY | 2019-04-20 14:36 | XMS REPORT | Continuity of Care Document ---
:1975 External Reference #:[id number] Author Name LANA Henry Address [address] [place] [address] Problems Active Problems Provider Date Chronic kidney [...] History Type Date Description Comments Sex Unknown Tobacco Use Start: Unknown Patient has never smoked Smoking Status Reviewed: 04/07/19 Patient has never smoked Allergies, Adverse Reactions, Alerts Description No Known Drug Allergies Medications Active Medications SIG Qnty Indications Ordering Date Provider Elbow Support/Neoprene 1 brace to wear 2units LANA Henry 04/07/2019 Medium on each elbow QHS Misc disp 1 for each arm Levothyroxine Sodium 1 daily Oral; 90tabs Unknown 01/11/2019 take in the 50mcg Tablets morning before you eat Blood Pressure Monitor 1 External 1units Unknown 01/30/2015 Talking Auto-Inflation Med Cuff Misc History Medications Trazodone HCL 1 at bedtime oral; 90tabs G47.00 Hanh Butler, 02/26/2019 - 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 Tablets before bed to improve sleep Metronidazole 1 twice daily 14tabs Unknown 01/11/2019 - 500mg Oral; DO Not 01/18/2019 Tablets consume alcoholic beverages or alcohol containing liquid medications while taking Flagyl Medications Administered in Office Medication SIG Qnty Indications Ordering Provider Date TB Intradermal Test Unknown 11/18/2017 Injection TB Intradermal Test Unknown 10/29/2017 Injection Immunizations CPT Code Status Date Vaccine Lot # [id number] Given 04/07/2019 Flu < 65 years [id number] Given 08/26/2016 Tdap - Boostrix/Adacel Vital Signs Date Vital Result Comment 04/07/2019 2:31pm BP Systolic 135 mmHg BP Diastolic 95 mmHg Height 61.5 inches 5'1.50" Weight 151.00 lb Heart Rate 92 /min Body Temperature 99.4 F O2 % BldC Oximetry 99 % BMI (Body Mass Index) 28.1 kg/m2 03/16/2019 2:24pm BP Systolic 150 mmHg BP Diastolic 90 mmHg Heart Rate 105 /min Body Temperature 99.6 F O2 % BldC Oximetry 98 % Results Test Acquired Date Facility Test Result H/L Range Note CFM Urine 03/16/2019 [facility] Urine, Microalbumin 30 Microalbumin/ ( )- - Creat R Urine, Creatinine, Random 200 Microalb/CR Ratio <30 Laboratory test 02/26/2019 [facility] TSH (Thyroid 4.06 Normal 0.34-5.60 [address] Stim Horm) mcIU/[place] [address] [phone] WBC-Ua 01/04/2019 N2N/CCD Import WBC-Ua Trace(0-5 Absent /hpf) T3 Total 01/04/2019 N2N/CCD Import T3 Total 72 ng/dL Low 87-178 ng/dL T4, Free 01/04/2019 N2N/CCD Import T4, Free 0.58 Low 0.61-1.12 ng/dL ng/dL TSH 01/04/2019 N2N/CCD Import TSH 29.09 High 0.34-5.60 mcIU/mL mcIU/mL BP Goal 01/04/2019 N2N/CCD Import BP Goal <130/80 Bilirubin-Ua 01/04/2019 N2N/CCD Import Bilirubin-Ua Negative Negative - Negative Qual Blood-Ua 01/04/2019 N2N/CCD Import Blood-Ua Negative Negative - Negative Qual Glucose-Ua 01/04/2019 N2N/CCD Import Glucose-Ua Negative Negative - Negative Qual Ketones-Ua 01/04/2019 N2N/CCD Import Ketones-Ua Negative Negative - Negative Qual Leuk Est-Ua 01/04/2019 N2N/CCD Import Leuk Est-Ua TR High Negative - Negative Qual Nitrite-Ua 01/04/2019 N2N/CCD Import Nitrite-Ua Negative Negative - Negative Qual PH-Ua 01/04/2019 N2N/CCD Import PH-Ua 6.5 _ 5 - 7 Protein-Ua 01/04/2019 N2N/CCD Import Protein-Ua Negative SP Grav-Ua 01/04/2019 N2N/CCD Import SP Grav-Ua <=1.005 Low 1.003 - 1.030 Urobilinogen-Ua 01/04/2019 N2N/CCD Import Urobilinogen-U neg Negative - a Negative Appear-Ua 01/04/2019 N2N/CCD Import Appear-Ua Clear Bacteria-Ua 01/04/2019 N2N/CCD Import Bacteria-Ua 1+ Abnormal Absent Bilirubin-Ua 01/04/2019 N2N/CCD Import Bilirubin-Ua Negative Negative Blood-Ua 01/04/2019 N2N/CCD Import Blood-Ua Negative Negative Color-Ua 01/04/2019 N2N/CCD Import Color-Ua Straw Epith-Ua 01/04/2019 N2N/CCD Import Epith-Ua Present Abnormal Absent Glucose-Ua 01/04/2019 N2N/CCD Import Glucose-Ua Negative Negative Ketones-Ua 01/04/2019 N2N/CCD Import Ketones-Ua Negative Negative Leuk Est-Ua 01/04/2019 N2N/CCD Import Leuk Est-Ua Trace Abnormal Negative Nitrite-Ua 01/04/2019 N2N/CCD Import Nitrite-Ua Negative Negative PH-Ua 01/04/2019 N2N/CCD Import PH-Ua 6.0 _ 5-9 Protein-Ua 01/04/2019 N2N/CCD Import Protein-Ua Negative Negative RBC-Ua 01/04/2019 N2N/CCD Import RBC-Ua Trace(0-2 Absent /hpf) SP Grav-Ua 01/04/2019 N2N/CCD Import SP Grav-Ua 1.008 _ Low 1.010-1.03 0 Urobilinogen-Ua 01/04/2019 N2N/CCD Import Urobilinogen-U Negative Negative a Triglycerides 11/02/2018 N2N/CCD Import Triglycerides 91 mg/dL Sodium 11/02/2018 N2N/CCD Import Sodium 138 135-145 mmol/L mmol/L Potassium 11/02/2018 N2N/CCD Import Potassium 4.3 3.5-5.0 mmol/L mmol/L LDL Cholesterol 11/02/2018 N2N/CCD Import LDL 128 mg/dL Cholesterol HDL Cholesterol 11/02/2018 N2N/CCD Import HDL 52.1 Cholesterol mg/dL Glucose 11/02/2018 N2N/CCD Import Glucose 94 mg/dL 70-100 mg/dL GFR Non Afr 11/02/2018 N2N/CCD Import GFR Non Afr 95.4 _ >60 Amer Amer GFR Afr Amer 11/02/2018 N2N/CCD Import GFR Afr Amer 115.4 _ >60 Creatinine 11/02/2018 N2N/CCD Import Creatinine 0.68 0.51-0.95 mg/dL mg/dL Co2 11/02/2018 N2N/CCD Import Co2 29 mmol/L 22-32 mmol/L Cholesterol 11/02/2018 N2N/CCD Import Cholesterol 198 mg/dL Chloride 11/02/2018 N2N/CCD Import Chloride 103 101-111 mmol/L mmol/L Calcium 11/02/2018 N2N/CCD Import Calcium 9.6 mg/dL 8.6-10.3 mg/dL BUN/Creat Ratio 11/02/2018 N2N/CCD Import BUN/Creat 19.1 _ 8-20 Ratio BUN 11/02/2018 N2N/CCD Import BUN 13 mg/dL 6-24 mg/dL Anion Gap 11/02/2018 N2N/CCD Import Anion Gap 6 mmol/L 2-11 mmol/L Bharti 10/30/2018 N2N/CCD Import Bharti 10/30/18 HIV Test 10/30/2018 N2N/CCD Import HIV Test Declined Offered Offered Health Care 10/30/2018 N2N/CCD Import Health Care Disc, Proxy Proxy form given Creat, Ur 10/30/2018 N2N/CCD Import Creat, Ur 200 _ Random Random Microalb/CR 10/30/2018 N2N/CCD Import Microalb/CR 30-300 Ratio Ratio Microalbumin, 10/30/2018 N2N/CCD Import Microalbumin, 150 _ Ur Ur Microalbumin 10/30/2018 N2N/CCD Import Microalbumin abnormal Interpretation Interpretation 1 [id number] Procedures Description No Information Available Medical Devices Description No Information Available Encounters Type Date Location Provider Dx Diagnosis Office Visit 04/07/2019 2:45p [facility] Main Hanh Butler, [facility] M25.531 Pain in right wrist M25.532 Pain in left wrist F41.1 Generalized anxiety disorder Office Visit 03/16/2019 2:30p [facility] Main Adriana Ward, [facility] I10 Essential ( primary) hypertension Office Visit 02/26/2019 11:00a CF Main Hanh Butler [facility] E03.9 Hypothyroidism, unspecified G47.00 Insomnia, unspecified Assessments Date Code Description Provider 04/07/2019 M25.531 Pain in right wrist Hanh Butler [facility] 04/07/2019 M25.532 Pain in left wrist Hanh Butler [facility] 04/07/2019 F41.1 Generalized anxiety disorder Hanh Butler [facility] 03/16/2019 I10 Essential (primary) hypertension Adriana Ward, [facility] 02/26/2019 E03.9 Hypothyroidism, unspecified Hanh Butler, [facility] 02/26/2019 G47.00 Insomnia, unspecified Hanh Butler [facility] Plan of Treatment 04/07/2019 - Hanh Butler PM25.531 Pain in right wristComments:discussed pain in both wristsrest wrists, apply ice BID, take ibuprofen for relief of painconsider getting thumb spica splints to rest wrist while sleeping will Rx for elbow brace to see if that helps her not worry about her arms and sleep better could try 1 tab of trazodone and see if she sleeps wellon less medication discussed SSRI to control anxiety but she is too concerned about side effects of medication to start one at this time discussed that thyroid medication could be increased but she refuses at this time return if wrist pain or anxiety worsens and prnM25.532 Pain in left fslhiV59.1 Generalized anxiety disorderAllNew Medication:Elbow Support/Neoprene Medium - 1 brace to wear on each elbow QHS disp 1 for each arm Functional Status Description No Information Available Mental Status Description No Information Available Referrals Description No Information Available
--- OUTSIDE RECORDS SUMMARY | 2019-04-20 14:36 | XMS REPORT | Continuity of Care Document ---
:1975 External Reference #:[id number] Author Name Adriana Ward, [facility] Address [address] [place] [address] Problems Active Problems Provider Date Chronic kidney [...] Unknown Allergies, Adverse Reactions, Alerts Description No Known Drug Allergies Medications Active Medications SIG Qnty Indications Ordering Date Provider Levothyroxine Sodium 1 daily Oral; 90tabs Unknown 01/11/2019 take in the 50mcg Tablets morning before you eat Blood Pressure Monitor 1 External 1units Unknown 01/30/2015 Talking Auto-Inflation Med Cuff Misc History Medications Trazodone HCL 1 at bedtime oral; 90tabs G47.00 Hanh Butler, 02/26/2019 - 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 improve sleep Metronidazole 1 twice daily 14tabs Unknown 01/11/2019 - 500mg Oral; DO Not 01/18/2019 Tablets consume alcoholic beverages or alcohol containing liquid medications while taking Flagyl Medications Administered in Office Medication SIG Qnty Indications Ordering Provider Date TB Intradermal Test Unknown 11/18/2017 Injection TB Intradermal Test Unknown 10/29/2017 Injection Immunizations CPT Code Status Date Vaccine Lot # [id number] Given 08/26/2016 Tdap - Boostrix/Adacel Vital Signs Date Vital Result Comment 03/16/2019 2:24pm BP Systolic 150 mmHg BP Diastolic 90 mmHg Heart Rate 105 /min Body Temperature 99.6 F O2 % BldC Oximetry 98 % 02/26/2019 11:12am BP Systolic 140 mmHg BP Diastolic 100 mmHg Heart Rate 92 /min Body Temperature 98.5 F O2 % BldC Oximetry 99 % Results Test Acquired Facility Test Result H/L Range Note Date Laboratory test 02/26/2019 [facility] TSH (Thyroid 4.06 Normal 0.34-5.60 [address] Stim Horm) mcIU/[place] [address] [phone] Urobilinogen-Ua 01/04/2019 N2N/CCD Import Urobilinogen-Ua neg Negative - Negative SP Grav-Ua 01/04/2019 N2N/CCD Import SP Grav-Ua <=1.005 Low 1.003 - 1.030 Protein-Ua 01/04/2019 N2N/CCD Import Protein-Ua Negative PH-Ua 01/04/2019 N2N/CCD Import PH-Ua 6.5 _ 5 - 7 Nitrite-Ua 01/04/2019 N2N/CCD Import Nitrite-Ua Negative Negative - Negative Qual Leuk Est-Ua 01/04/2019 N2N/CCD Import Leuk Est-Ua TR High Negative - Negative Qual Ketones-Ua 01/04/2019 N2N/CCD Import Ketones-Ua Negative Negative - Negative Qual Glucose-Ua 01/04/2019 N2N/CCD Import Glucose-Ua Negative Negative - Negative Qual Blood-Ua 01/04/2019 N2N/CCD Import Blood-Ua Negative Negative - Negative Qual Bilirubin-Ua 01/04/2019 N2N/CCD Import Bilirubin-Ua Negative Negative - Negative Qual BP Goal 01/04/2019 N2N/CCD Import BP Goal <130/80 TSH 01/04/2019 N2N/CCD Import TSH 29.09 High 0.34-5.60 mcIU/mL mcIU/mL T4, Free 01/04/2019 N2N/CCD Import T4, Free 0.58 ng/dL Low 0.61-1.12 ng/dL T3 Total 01/04/2019 N2N/CCD Import T3 Total 72 ng/dL Low 87-178 ng/dL WBC-Ua 01/04/2019 N2N/CCD Import WBC-Ua Trace(0-5/ Absent hpf) Appear-Ua 01/04/2019 N2N/CCD Import Appear-Ua Clear Bacteria-Ua [...] Negative Negative RBC-Ua 01/04/2019 N2N/CCD Import RBC-Ua Trace(0-2/ Absent hpf) SP Grav-Ua 01/04/2019 N2N/CCD Import SP Grav-Ua 1.008 _ Low 1.010-1.0 30 Urobilinogen-Ua 01/04/2019 N2N/CCD Import Urobilinogen-Ua Negative Negative Triglycerides 11/02/2018 N2N/CCD Import Triglycerides 91 mg/dL Sodium 11/02/2018 N2N/CCD Import Sodium 138 mmol/L 135-145 mmol/L Potassium 11/02/2018 N2N/CCD Import Potassium 4.3 mmol/L 3.5-5.0 mmol/L LDL Cholesterol 11/02/2018 N2N/CCD Import LDL Cholesterol 128 mg/dL HDL Cholesterol 11/02/2018 N2N/CCD Import HDL Cholesterol 52.1 mg/dL Glucose 11/02/2018 N2N/CCD Import Glucose 94 mg/dL 70-100 mg/dL GFR Non Afr Amer 11/02/2018 N2N/CCD Import GFR Non Afr Amer 95.4 _ >60 GFR Afr Amer 11/02/2018 N2N/CCD Import GFR Afr Amer 115.4 _ >60 Creatinine 11/02/2018 N2N/CCD Import Creatinine 0.68 mg/dL 0.51-0.95 mg/dL Co2 11/02/2018 N2N/CCD Import Co2 29 mmol/L 22-32 mmol/L Cholesterol 11/02/2018 N2N/CCD Import Cholesterol 198 mg/dL Chloride 11/02/2018 N2N/CCD Import Chloride 103 mmol/L 101-111 mmol/L Calcium 11/02/2018 N2N/CCD Import Calcium 9.6 mg/dL 8.6-10.3 mg/dL BUN/Creat Ratio 11/02/2018 N2N/CCD Import BUN/Creat Ratio 19.1 _ 8-20 BUN 11/02/2018 N2N/CCD Import BUN 13 mg/dL 6-24 mg/dL Anion Gap 11/02/2018 N2N/CCD Import Anion Gap 6 mmol/L 2-11 mmol/L Bharti 10/30/2018 N2N/CCD Import Bharti 10/30/18 HIV Test Offered 10/30/2018 N2N/CCD Import HIV Test Offered Declined Health Care 10/30/2018 N2N/CCD Import Health Care Disc, form Proxy Proxy given Creat, Ur Random 10/30/2018 N2N/CCD Import Creat, Ur Random 200 _ Microalb/CR 10/30/2018 N2N/CCD Import Microalb/CR 30-300 Ratio Ratio Microalbumin, Ur 10/30/2018 N2N/CCD Import Microalbumin, Ur 150 _ Microalbumin 10/30/2018 N2N/CCD Import Microalbumin abnormal Interpretation Interpretation 1 [id number] Procedures Description No Information Available Medical Devices Description No Information Available Encounters Type Date Location Provider Dx Diagnosis Office Visit 03/16/2019 [facility] Main LANA Lopez I10 Essential (primary) 2:30p hypertension Office Visit 02/26/2019 [facility] Main LANA Henry E03.9 Hypothyroidism, 11:00a unspecified G47.00 Insomnia, unspecified Assessments Date Code Description Provider 03/16/2019 I10 Essential (primary) hypertension Adriana Ward, [facility] 02/26/2019 E03.9 Hypothyroidism, unspecified Hanh Butler, [facility] 02/26/2019 G47.00 Insomnia, unspecified Hanh Butler, [facility] Plan of Treatment 03/16/2019 - LEILA LopezPI10 Essential (primary) hypertensionComments: Reviewed s/s of heart and kidney failure. None present. Disc. treating HTN is necessary to preventend organ damage. Declined. Urine for microalbumin ran-- if abnormal will rec. MAURICIO. Rec. reductionin NA, weight loss and exercise. Follow up in office as needed. Tennis elbow--resolved. No meron noted in right forearm. Follow up as needed. Functional Status Description No Information Available Mental Status Description No Information Available Referrals Description No Information Available
--- OUTSIDE RECORDS SUMMARY | 2019-04-20 14:36 | XMS REPORT | Continuity of Care Document ---
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 before bed to improve sleep Metronidazole 1 twice daily 14tabs Unknown 01/11/2019 - 500mg Oral; DO Not 01/18/2019 Tablets consume alcoholic beverages or alcohol containing liquid medications while taking Flagyl Medications Administered in Office Medication SIG Qnty Indications Ordering Provider Date TB Intradermal Test Unknown 11/18/2017 Injection TB Intradermal Test Unknown 10/29/2017 Injection Immunizations CPT Code Status Date Vaccine Lot # [id number] Given 08/26/2016 Tdap - Boostrix/Adacel Vital Signs [...] H/L Range Note Date Laboratory test 02/26/2019 [facility] TSH (Thyroid 4.06 Normal 0.34-5.60 [address] Stim Horm) mcIU/[place] [address] [phone] Urobilinogen-Ua 01/04/2019 N2N/CCD Import Urobilinogen-Ua neg Negative [...] N2N/CCD Import Microalbumin abnormal Interpretation Interpretation 1 [id number] Procedures Description No Information Available Medical Devices Description No Information Available Encounters Type Date Location Provider Dx Diagnosis Office Visit 03/16/2019 [facility] Main LANA Lopez I10 Essential (primary) 2:30p hypertension Office Visit 02/26/2019 [facility] Main LANA Henry E03.9 Hypothyroidism, 11:00a unspecified G47.00 Insomnia, unspecified Assessments Date Code Description Provider 03/16/2019 I10 Essential (primary) hypertension Adriana Estradazackery, [facility] 02/26/2019 E03.9 Hypothyroidism, unspecified Hanh Butler, [facility] 02/26/2019 G47.00 Insomnia, unspecified Hanh Butler, [facility] Plan of Treatment 02/26/2019 - Hanh Butler, PE03.9 Hypothyroidism, unspecifiedComments:discussed importance of taking medication 45 minutes before eating any food will check TSH today will call patient if levothyroxine needs to be xberiglaL46.00 Insomnia , unspecifiedNew Medication:Trazodone HCL 50 mg [...]
--- OUTSIDE RECORDS SUMMARY | 2019-04-20 14:36 | XMS REPORT | Continuity of Care Document ---
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 before bed to improve sleep Metronidazole 1 twice daily 14tabs Unknown 01/11/2019 - 500mg Oral; DO Not 01/18/2019 Tablets consume alcoholic beverages or alcohol containing liquid medications while taking Flagyl Medications Administered in Office Medication SIG Qnty Indications Ordering Provider Date TB Intradermal Test Unknown 11/18/2017 Injection TB Intradermal Test Unknown 10/29/2017 Injection Immunizations CPT Code Status Date Vaccine Lot # [id number] Given 08/26/2016 Tdap - Boostrix/Adacel Vital Signs [...] H/L Range Note Date Laboratory test 02/26/2019 [facility] TSH (Thyroid 4.06 Normal 0.34-5.[address] Stim Horm) mcIU/[place] [address] [phone] Urobilinogen-Ua 01/04/2019 N2N/CCD Import Urobilinogen-Ua neg Negative [...] N2N/CCD Import Microalbumin abnormal Interpretation Interpretation 1 [id number] Procedures Description No Information Available Medical Devices Description No Information Available Encounters Type Date Location Provider Dx Diagnosis Office Visit 03/16/2019 [facility] Main LANA Lopez I10 Essential (primary) 2:30p hypertension Office Visit 02/26/2019 [facility] Main LANA Henry E03.9 Hypothyroidism, 11:00a unspecified G47.00 Insomnia, unspecified Assessments Date Code Description Provider 03/16/2019 I10 Essential (primary) hypertension Adriana Estradazackery, [facility] 02/26/2019 E03.9 Hypothyroidism, unspecified Hanh Butler, [facility] 02/26/2019 G47.00 Insomnia, unspecified Hanh Butler, [facility] Plan of Treatment 03/16/2019 - Adriana Ward, [id number] Essential (primary) hypertensionComments: Reviewed s/s of heart [...]
--- OUTSIDE RECORDS SUMMARY | 2019-04-20 14:36 | XMS REPORT | Continuity of Care Document ---
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 Tablets before bed to improve sleep Metronidazole 1 twice daily 14tabs Unknown 01/11/2019 - 500mg Oral; DO Not 01/18/2019 Tablets consume alcoholic beverages or alcohol containing liquid medications while taking Flagyl Medications Administered in Office Medication SIG Qnty Indications Ordering Provider Date TB Intradermal Test Unknown 11/18/2017 Injection TB Intradermal Test Unknown 10/29/2017 Injection Immunizations CPT Code Status Date Vaccine Lot # [id number] Given 08/26/2016 Tdap - Boostrix/Adacel Vital Signs [...] H/L Range Note Date Laboratory test 02/26/2019 [facility] TSH (Thyroid 4.06 Normal 0.34-5.[address] Stim Horm) mcIU/[place] [address] [phone] Urobilinogen-Ua 01/04/2019 N2N/CCD Import Urobilinogen-Ua neg Negative [...] N2N/CCD Import Microalbumin abnormal Interpretation Interpretation 1 [id number] Procedures Description No Information Available Medical Devices Description No Information Available Encounters Type Date Location Provider Dx Diagnosis Office Visit 03/16/2019 [facility] I10 Essential (primary) 2:30p hypertension Office Visit 02/26/2019 [facility] Henry E03.9 Hypothyroidism, 11:00a unspecified G47.00 Insomnia, unspecified Assessments Date Code Description Provider 03/16/2019 I10 Essential (primary) hypertension Adriana Ward, [facility] 02/26/2019 E03.9 Hypothyroidism, unspecified Hanh Butler, [facility] 02/26/2019 G47.00 Insomnia, unspecified LANA Henry Plan of Treatment No Information Available Functional Status Description No Information Available Mental Status Description No Information Available Referrals Description No Information Available
--- OUTSIDE RECORDS SUMMARY | 2019-04-20 14:36 | XMS REPORT | Continuity of Care Document ---
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 to improve sleep Metronidazole 1 twice daily 14tabs Unknown 01/11/2019 - 500mg Oral; DO Not 01/18/2019 Tablets consume alcoholic beverages or alcohol containing liquid medications while taking Flagyl Medications Administered in Office Medication SIG Qnty Indications Ordering Provider Date TB Intradermal Test Unknown 11/18/2017 Injection TB Intradermal Test Unknown 10/29/2017 Injection Immunizations CPT Code Status Date Vaccine Lot # [id number] Given 08/26/2016 Tdap - Boostrix/Adacel Vital Signs Date Vital Result Comment 03/16/2019 2:24pm BP Systolic 150 mmHg BP Diastolic 90 mmHg Heart Rate 105 /min Body Temperature 99.6 F O2 % BldC Oximetry 98 % 02/26/2019 11:12am BP Systolic 140 mmHg BP Diastolic 100 mmHg Heart Rate 92 /min Body Temperature 98.5 F O2 % BldC Oximetry 99 % Results Test Acquired Date Facility Test Result H/L Range Note [facility] Urine 03/16/2019 [facility] Urine, Microalbumin 30 Microalbumin/ ( )- - Creat R Urine, Creatinine, Random 200 Microalb/CR Ratio <30 Laboratory test 02/26/2019 [facility] TSH (Thyroid 4.06 Normal 0.34-5.[address] Stim Horm) mcIU/[place] [address] [phone] WBC-Ua 01/04/2019 N2N/CCD Import WBC-Ua Trace(0-5 Absent [...] N2N/CCD Import Microalbumin abnormal Interpretation Interpretation 1 [id number] Procedures Description No Information Available Medical Devices Description No Information Available Encounters Type Date Location Provider Dx Diagnosis Office Visit 03/16/2019 [facility] I10 Essential (primary) 2:30p hypertension Office Visit 02/26/2019 [facility]h LANA Butler E03.9 Hypothyroidism, 11:00a unspecified G47.00 Insomnia, unspecified Assessments Date Code Description Provider 03/16/2019 I10 Essential (primary) hypertension LANA Lopez 02/26/2019 E03.9 Hypothyroidism, unspecified Hanh LANA Butler 02/26/2019 G47.00 Insomnia, unspecified LANA Henry Plan of Treatment 03/16/2019 - LEILA LopezPI10 [...]
--- OUTSIDE RECORDS SUMMARY | 2019-04-20 14:37 | XMS REPORT | Continuity of Care Document ---
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06 Normal 0.34-5.[address] Stim Horm) mcIU/[place] [address] [phone] Urobilinogen-Ua 01/04/2019 N2N/CCD Import Urobilinogen-Ua neg Negative [...] N2N/CCD Import Microalbumin abnormal Interpretation Interpretation 1 [id number] Procedures Description No Information Available Medical Devices Description No Information Available Encounters Type Date Location Provider Dx Diagnosis Office Visit 03/16/2019 [facility] I10 Essential (primary) 2:30p hypertension Office Visit 02/26/2019 [facility] E03.9 Hypothyroidism, 11:00a unspecified G47.00 Insomnia, unspecified Assessments Date Code Description Provider 03/16/2019 I10 Essential (primary) hypertension Adriana Ward, [facility] 02/26/2019 E03.9 Hypothyroidism, unspecified Hanh Butler, [facility] 02/26/2019 G47.00 Insomnia, unspecified Hanh Butler, [facility] Plan of Treatment 03/16/2019 - LEILA LopezPI10 [...]
== END 2019-04-15 21:41 | disposition home or self-care (01) ==
LOC: ED 20:21
DX: M79.601 Pain in right arm (principal); Z88.0 Allergy status to penicillin
CPT/HCPCS: 96372; 99282; J1885

== ENCOUNTER 2019-04-25 18:14 | Emergency (ER) | payer OTHER ==
--- OUTSIDE RECORDS SUMMARY | 2019-04-25 18:34 | XMS REPORT | Continuity of Care Document ---
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 Onset: 04/21/2019 Social History Type Date Description Comments Sex Unknown ETOH Use Denies alcohol use Tobacco Use Start: Unknown Patient has never smoked Smoking Status Reviewed: 04/21/19 Patient has never smoked Exercise Type/Frequency Does not exercise Allergies, Adverse Reactions, Alerts Active Allergies Reaction Severity Comments Date Amoxicillin 02/22/2019 Medications Active Medications SIG Qnty Indications Ordering Provider Date Ibuprofen Unknown Motrin Ib Unknown Levothyroxine Sodium Jeanine Workman, DO 50mcg Tablets Immunizations Description No Information Available Vital Signs Date Vital Result Comment 04/21/2019 12:33pm Height 62 inches 5'2" Weight 152.00 lb Heart Rate 79 /min Respiratory Rate 18 /min Body Temperature 98.9 F Pain Level 8 BMI (Body Mass Index) 27.8 kg/m2 03/10/2019 1:03pm Height 62 inches 5'2" Weight 148.00 lb Heart Rate 92 /min BP Systolic 144 mmHg BP Diastolic 94 mmHg BMI (Body Mass Index) 27.1 kg/m2 Results Test Acquired Date Facility Test Result H/L Range Note Arthritis Panel 02/24/2019 [facility] Uric Acid 3.0 mg/dL Normal 2.3-6.6 [address] [place] [address] [phone] Rheumatoid Factor < 10 IU/mL Normal <15 [...] or = 3.0 U. Studies performed at [facility] indicate that positive ROMAN results <3.0 U are rarely accompanied by positive second order tests. Test Performed by: [facility] [address] [place] [address] Refrigerating Engineer Head: Saul Lehman M.D. Ph.D.; CLIA# [id number] Procedures Date Code Description Status 03/02/2019 06143 Nerve Conduction - Studies Completed 03/02/2019 01078 Needle Electromyography Complete, Five Or More Muscles Completed Studied Medical Devices Description No Information Available Encounters Type Date Location Provider Dx Diagnosis Office Visit 04/21/2019 [facility] eKmar Rico, G56.21 Lesion of ulnar 11:45a at [place] nerve, right upper limb Office Visit 03/10/2019 [facility] Jaja De La O M25.521 Pain in right 1:00p at [facility] elbow Office Visit 02/24/2019 [facility] Jaja De La O M25.522 Pain in left 10:00a at [facility] elbow M25.521 Pain in right elbow Office Visit 02/22/2019 1:00p [facility] M25.522 [facility] Pain in right elbow Assessments Date Code Description Provider 04/21/2019 G56.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 02/22/2019 M25.521 Pain in right elbow Tamia Morrow M.D. Plan of Treatment Future Appointment(s):06/22/2019 1:00 pm - Kemar Rico MD at [facility] at Oetuvv2805/03/2019 2:15 pm - Tamia Morrow M.D. at [facility] at Pih[place]ia6004/22/2019 1:00 pm - Michael Miller MD at [facility]04/21/2019 - Kemar Rico MDG56.21 Lesion of ulnar nerve, right upper limbNew Therapy:Physical TherapyFollow up:Follow up: 2 months Functional Status Description No Information Available Mental Status Description No Information Available Referrals Refer to Dr Reason for Referral Status Appt Date Jarrod Fraser MD Weak positive ROMAN, slightly elevated ESR. Scheduled 05/25 Multi-joint discomfort. [address] [place] [address] [place] [address] [phone]
--- OUTSIDE RECORDS SUMMARY | 2019-04-25 18:34 | XMS REPORT | Continuity of Care Document ---
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 Onset: 04/21/2019 Social History Type Date Description Comments Sex Unknown ETOH Use Denies alcohol use Tobacco Use Start: Unknown Patient has never smoked Smoking Status Reviewed: 04/22/19 Patient has never smoked Exercise Type/Frequency Does not exercise Allergies, Adverse Reactions, Alerts Active Allergies Reaction Severity Comments Date Amoxicillin 02/22/2019 Medications Active Medications SIG Qnty Indications Ordering Date Provider Prednisone Take 2 tabs by 60tabs M06.4 Michael Miller, 04/22/2019 5mg Tablets mouth daily for MD two weeks, one tab by mouth daily until follow-up appointment Prilosec OTC Take one tab by 90tabs K21.9 Michael Miller, 04/22/2019 20mg mouth daily while MD [address] DR taking prednisone Ibuprofen Unknown Motrin Ib Unknown Levothyroxine Sodium Karnow, Jeanine Alvarado DO 50mcg Tablets Immunizations Description No Information Available Vital Signs Date Vital Result Comment 04/22/2019 1:01pm Height 62 inches 5'2" Weight 149.12 lb Heart Rate 76 /min BP Systolic 157 mmHg BP Diastolic 111 mmHg Body Temperature 97.8 F O2 % BldC Oximetry 99 % BMI (Body Mass Index) 27.3 kg/m2 04/21/2019 12:33pm Height 62 inches 5'2" Weight 152.00 lb Heart Rate 79 /min Respiratory Rate 18 /min Body Temperature 98.9 F Pain Level 8 BMI (Body Mass Index) 27.8 kg/m2 Results Test Acquired Date Facility Test Result H/L Range Note Arthritis Panel 02/24/2019 [facility] Uric Acid 3.0 mg/dL Normal 2.3-6.6 [address] [place] [address] [phone] Rheumatoid Factor < 10 IU/mL Normal <15 [...] or = 3.0 U. Studies performed at [facility] indicate that positive ROMAN results <3.0 U are rarely accompanied by positive second order tests. Test Performed by: [facility] [address] [place] [address] Emergency Medical Technician/Driver: Saul Lehman M.D. Ph.D.; IA# [id number] Procedures Date Code Description Status 03/02/2019 32550 Nerve Conduction - Studies Completed 03/02/2019 65286 Needle Electromyography Complete, Five Or More Muscles Completed Studied Medical Devices Description No Information Available Encounters Type Date Location Provider Dx Diagnosis [facility] M25.521 Pain in right 1:00p at [facility] elbow Office Visit 02/24/2019 [facility] Jaja De La O, M25.522 Pain in left 10:00a at [facility] elbow M25.521 Pain in right elbow Office Visit 02/22/2019 1:00p [facility] Tamia Morrow, M25.522 Pain in left at [place] [facility] 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 Plan of Treatment Future Appointment(s):05/24/2019 3:30 pm - Michael Miller MD at [facility]06/22/2019 1:00 pm - Kemar Rico MD at [facility] at Xbmmsg6805/03/2019 2:15 pm - Tamia Morrow M.D. at [facility] at Ojwbjq3704/22/2019 - Michael Miller MDM06.4 Inflammatory polyarthropathyNew Medication:Prednisone 5 mg - Take 2 tabs by mouth daily for two weeks, one tab by mouth daily until follow-up appointmentNew Xrays:MRI Elbow Right W, Ordered: 04/22/19Follow up:by the end of April or early WbxirewN66.521 Pain in right apyzdX46.2 Paresthesia of skinR76.0 Raised antibody vtcauQ21.9 Gastro-esophageal reflux disease without esophagitisNew Medication:Prilosec OTC 20 mg - Take one tab by mouth daily while taking prednisone Functional Status Description No Information Available Mental Status Description No Information Available Referrals Refer to Dr Reason for Referral Status Appt Date Jarrod Fraser MD Weak positive ROMAN, slightly elevated ESR. Scheduled 05/25 Multi-joint discomfort. [address] [place] [address] [place] [address] [phone]
--- NOTE | 2019-04-25 19:47 | ED ---
Hypertension - HPI Summary HPI Summary: 43 year old female presents to the ED with a chief complaint of hypertension beginning last night. 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 She had slight chest wall discomfort last night when she was falling sleep. She called her who doctor recommended that she come to the ED for further evaluation of blood pressure. Denies current CP or SOB. No history of smoking, alcohol use, or recreational drug use. - History of Current Complaint Chief Complaint: EDHypertension Stated Complaint: HIGH BLOOD PRESSURE PER PT Time Seen by Provider: 04/25/19 19:19 Hx Obtained From: Patient Hx Last Menstrual Period: BEGINNING NOVEMBER Onset/Duration: Resolved Timing: Lasting Minutes Aggravating Factor(s): Nothing Alleviating Factor(s): Nothing - Allergies/Home Medications Allergies/Adverse Reactions: Allergies Allergy/AdvReac Type Severity Reaction Status Date / Time amoxicillin Allergy GI Upset Verified 04/25/19 19:26 PMH/Surg Hx/FS Hx/Imm Hx Endocrine/Hematology History: Denies: Hx Anticoagulant Therapy, Hx Diabetes Cardiovascular History: Denies: Hx Pacemaker/ICD Respiratory History: Reports: Hx Asthma - seasonal History: Denies: Hx Dialysis Sensory History: Denies: Hx Eye Prosthesis, Hx Legally Blind, Hx Deafness Opthamlomology History: Denies: Hx Eye Prosthesis, Hx Legally Blind Neurological History: Denies: Hx Dementia - Surgical History Surgery Procedure, Year, and Place: DENTAL Infectious Disease History: No Infectious Disease History: Denies: Traveled Outside the [place] in Last 30 Days - Family History Known Family History: Positive: Cardiac Disease - Social History Alcohol Use: None Hx Substance Use: No Substance Use Type: Reports: None Hx Tobacco Use: No Smoking Status (MU): Never Smoked Tobacco Review of Systems Negative: Fever Positive: Palpitations, Chest Pain Positive: Arthralgia All Other Systems Reviewed And Are Negative: Yes Physical Exam - Summary Physical Exam Summary: Constitutional: Well-developed, Well-nourished, Alert. (-) Distressed Skin: Warm, Dry HENT: Normocephalic; Atraumatic Eyes: Conjunctiva normal Neck: Musculoskeletal ROM normal neck. (-) JVD, (-) Stridor, (-) Nuchal rigidity Cardio: Rhythm regular, rate normal, Heart sounds normal; Intact distal pulses; Radial pulses are 2+ and symmetric. (-) Murmur Pulmonary/Chest wall: Effort normal. (-) Respiratory distress, (-) Wheezes, (-) Rales Abd: Soft, (-) tenderness, (-) Distension, (-) Guarding, (-) Rebound Musculoskeletal: (-) Edema. Bilateral elbow braces. Lymph: (-) Cervical adenopathy Neuro: Alert, Oriented x3 Psych: Mood and affect Normal Triage Information Reviewed: Yes Vital Signs On Initial Exam: Initial Vitals Temp Pulse Resp BP Pulse Ox 98.4 F 82 16 196/133 100 04/25/19 18:20 04/25/19 18:20 04/25/19 18:20 04/25/19 18:20 04/25/19 18:20 Vital Signs Reviewed: Yes Procedures - Sedation Patient Received Moderate/Deep Sedation with Procedure: No Diagnostics - Vital Signs Vital Signs Temp Pulse Resp BP Pulse Ox 04/25/19 18:20 98.4 F 82 16 196/133 100 - Laboratory Result Diagrams: 04/25/19 19:45 04/25/19 19:45 Lab Statement: Any lab studies that have been ordered have been reviewed, and results considered in the medical decision making process. - EKG 1936 Cardiac Rate: NL - 78 bpm EKG Rhythm: Sinus Rhythm ST Segment: Normal Summary of EKG Findings: EKG at 193 reveals sinus rhythm at 78 bpm. T wave inversion in 3. No STEMI. An ED physician has reviewed and interpreted this report. Re-Evaluation - Re-Evaluation First Eval Re-Evaluation Time: 20:40 Change: Improved - I offered the patient hypertension meds, which she declined. D/w her risk of stroke w elevated BP. will send home w amlodipine Hypertension Course/Dx - Course Course Of Treatment: 43 y/o F p/w HTN. - episode of CP - normal trop, no current CP, EKG w TWI III no prior. Heart score: 2, can follow up with PCP. - Based on my eval today, no evidence of end organ damage from hypertension. - chemistry wnl,no KEIRY noted, no chest pain/sob, no BRITO, neuro exam non-focal. Recommendations for BP management: -The pt likely suffers from essential hypertension. -In the absence of a hypertensive emergency, which the pt does not have, there is no indication to aggressively treat elevated blood pressure, even when it approaches the systolic ~180 range. -The patient needs long-term management of their blood pressure, given amlodipine rx - Diagnoses Provider Diagnoses: High blood pressure Discharge ED - Sign-Out/Discharge Documenting (check all that apply): Patient Departure - discharge - Discharge Plan Condition: Stable Disposition: HOME Prescriptions: amLODIPine TAB* [Norvasc 5 mg TAB*] 5 mg PO DAILY 30 Days #30 tab Patient Education Materials: Chronic Hypertension (ED) Referrals: Andrey Corrales MD [Primary Care Provider] - Additional Instructions: You were seen in the emergency department for blood pressure. Please take amlodipine daily Please follow up with your primary care doctor in next 2-3 days and return to emergency department for chest pain, trouble breathing, passing out, worsening or concerning symptoms. It was a pleasure taking care of you today. - Billing Disposition and Condition Condition: STABLE Disposition: Home - Attestation Statements Document Initiated by Erwin: Yes Documenting Scribe: Benigno Mcneil Provider For Whom Erwin is Documenting (Include Credential): Poncho Verdugo MD Scribe Attestation: Benigno Smith, scribed for Poncho Verdugo MD on 04/25/19 at 2043. Scribe Documentation Reviewed: Yes Provider Attestation: The documentation as recorded by the Benigno thorne accurately reflects the service I personally performed and the decisions made by Poncho alvarez MD Status of Scribe Document: Viewed
[2019-04-25] MEDS ORDERED: amLODIPine TAB* 5 MG PO ONE (19:56)
[2019-04-25 19:57] LABS: ABS Basophils 0.1 10^3/ul (0-0.2); ABS Eosinophils 0.1 10^3/ul (0-0.6); ABS Lymphocytes 2.1 10^3/ul (1.0-4.8); ABS Monocytes 0.5 10^3/ul (0-0.8); ABS Neutrophils 3.8 10^3/ul (1.5-7.7); Eosinophil % 1.4 %; Hematocrit 33 % (35-47); Hemoglobin 10.8 g/dL (12.0-16.0); Lymphocyte % 32.5 %; Mean Corpuscular HGB Conc 33 g/dL (31-36); Mean Corpuscular Hemoglobin 24 pg (27-31); Mean Corpuscular Volume 74 fL (80-97); Platelet Count 475 10^3/uL (150-450); Red Blood Count 4.52 10^6 /uL (3.70-4.87); Red Cell Distribution Width 17 % (10-15); White Blood Count 6.5 10^3/uL (3.5-10.8)
[2019-04-25 20:10] LABS: Albumin 4.1 g/dL (3.2-5.2); Albumin/Globulin Ratio 1.2 (1-3); BUN/Creatinine Ratio 16.2 (8-20); Calcium 9.2 mg/dL (8.6-10.3); EGFR African American 104.1 (>60); EGFR Non-African American 86.1 (>60); Globulin 3.4 g/dL (2-4); Potassium 3.3 mmol/L (3.5-5.0); Total Bilirubin 0.2 mg/dL (0.2-1.0); Total Protein 7.5 g/dL (6.4-8.9)
[2019-04-25 20:59] VITALS: BP 172/104
== END 2019-04-25 20:57 | disposition home or self-care (01) ==
LOC: ED 18:14
DX: I10 Essential (primary) hypertension (principal); R07.9 Chest pain, unspecified; R00.2 Palpitations
CPT/HCPCS: 36415; 80053; 84484; 85025; 93005; 99283; A9270-GY

== ENCOUNTER 2019-05-22 09:43 | Emergency (ER) | payer OTHER ==
--- NOTE | 2019-05-22 10:12 | ED ---
HPI Chest Pain - HPI Summary HPI Summary: 43 y/o female presented to [facility] complaining of left chest wall pain present since 05/20/19 that has been constant since this morning. At the time of onset the pain was intermittent and was not present when she went to sleep but then returned when she woke up. She describes her pain as a pressure similar to GERD symptoms w burning CP at night. She experiences the pain upon rest and claims she does not experience it on exertion. She denies SOB or dyspnea. She claims to have been tired for weeks with insomnia, and she experiences occasional neck pain when she chews food, all of which she has been attributing to her dx of hypothyroidism. 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 She has not had a thyroid US, and is prescribed Levothyroxine which she does not like taking secondary to her symptoms. She has Hx of HTN and thyroid issues. - History of Current Complaint Chief Complaint: EDChestWallPain Time Seen by Provider: 05/22/19 10:02 Hx Obtained From: Patient Hx Last Menstrual Period: BEGINNING NOVEMBER Onset/Duration: Started Days Ago, Still Present Timing: Constant - now, Intermittent - initially, Lasting Days Current Severity: None Pain Intensity: 0 Pain Scale Used: 0-10 Numeric Chest Pain Location: Left Lateral Chest Pain Radiates: No Character: Pressure/Squeezing, Other: - similar to GERD symptoms Aggravating Factor(s): Rest Alleviating Factor(s): Nothing Associated Signs and Symptoms: Positive: Chest Pain, Other: - insomnia; Negative : dyspnea. Negative: Shortness of Breath - Allergy/Home Medications Allergies/Adverse Reactions: Allergies Allergy/AdvReac Type Severity Reaction Status Date / Time amoxicillin Allergy GI Upset Verified 05/22/19 10:00 PMH/Surg Hx/FS Hx/Imm Hx Endocrine/Hematology History: Denies: Hx Anticoagulant Therapy, Hx Diabetes Cardiovascular History: Denies: Hx Pacemaker/ICD Respiratory History: Reports: Hx Asthma - seasonal History: Denies: Hx Dialysis Sensory History: Denies: Hx Eye Prosthesis, Hx Legally Blind, Hx Deafness Opthamlomology History: Denies: Hx Eye Prosthesis, Hx Legally Blind Neurological History: Denies: Hx Dementia - Surgical History Surgery Procedure, Year, and Place: DENTAL Infectious Disease History: No Infectious Disease History: Denies: Traveled Outside the [place] in Last 30 Days - Family History Known Family History: Positive: Cardiac Disease - Social History Alcohol Use: None Hx Substance Use: No Substance Use Type: Reports: None Hx Tobacco Use: No Smoking Status (MU): Never Smoked Tobacco Review of Systems Positive: Fatigue, Other - insomnia Positive: Other - pain with swallowing Positive: Chest Pain Negative: Shortness Of Breath, Other - dyspnea Positive: Numbness All Other Systems Reviewed And Are Negative: Yes Physical Exam - Summary Physical Exam Summary: Constitutional: Well-developed, Well-nourished, Alert. (-) Distressed Skin: Warm, Dry HENT: Normocephalic; Atraumatic Eyes: Conjunctiva normal Neck: Musculoskeletal ROM normal neck. (-) JVD, (-) Stridor, (-) Nuchal rigidity Cardio: Rhythm regular, rate normal, Heart sounds normal; Intact distal pulses; Radial pulses are 2+ and symmetric. (-) Murmur Pulmonary/Chest wall: Effort normal. (-) Respiratory distress, (-) Wheezes, (-) Rales Abd: Soft, (-) tenderness, (-) Distension, (-) Guarding, (-) Rebound Musculoskeletal: (-) Edema Lymph: (-) Cervical adenopathy Neuro: Alert, Oriented x3 Psych: Mood and affect Normal Triage Information Reviewed: Yes Vital Signs On Initial Exam: Initial Vitals Temp Pulse Resp BP Pulse Ox 98.4 F 84 18 142/97 97 05/22/19 09:51 05/22/19 09:51 05/22/19 09:51 05/22/19 09:51 05/22/19 09:51 Vital Signs Reviewed: Yes Procedures - Sedation Patient Received Moderate/Deep Sedation with Procedure: No Diagnostics - Vital Signs Vital Signs Temp Pulse Resp BP Pulse Ox 05/22/19 10:02 80 98 05/22/19 09:51 98.4 F 84 18 142/97 97 - Laboratory Result Diagrams: 05/22/19 10:24 05/22/19 10:24 Lab Statement: Any lab studies that have been ordered have been reviewed, and results considered in the medical decision making process. - Radiology cxr Radiology Interpretation Completed By: Radiologist Summary of Radiographic Findings: IMPRESSION: No active cardiopulmonary disease is noted. This report was reviewed by the ED physician. CXR Radiology Interpretation Completed By: Radiologist Summary of Radiographic Findings: IMPRESSION: No active cardiopulmonary disease is noted. This report was reviewed by the ED physician. - EKG 0950 Cardiac Rate: NL - 76 bpm EKG Rhythm: Sinus Rhythm Summary of EKG Findings: An EKG at 0950 reveals normal sinus rhythm at 76bpm, T- wave inversions in III. No STEMI. No significant changes when compared to 2018. This report was reviewed and interpreted by the ED physician. Re-Evaluation - Re-Evaluation First Eval Re-Evaluation Time: 11:45 Comment: We discussed all results and plan for discharge. Chest Pain Course/Dx - Course Course Of Treatment: 46 y/o F w hx ?hashimotos/thyroiditis, HTN, p/w L sided CP and fatigue. -VS mild HTN, PE otherwise normal. Chest Pain DDX: The patient is well appearing, with stable vitals. Given the patient's clinical presentation, highest on differential is atypical CP. Although less likely, differential also includes the following: --Pneumothorax: Equal breath sounds, story inconsistent since gradual onset of symptoms. CXR shows no evidence of pneumothorax. Unlikely. --Cardiac tamponade: The history and physical are not concerning for tamponade. No Pulsus Paradoxus, no tachypnea. Unlikely. -- Mediastinitis or esophageal rupture: The history is not consistent, as the patient has had no recent history of significant wretching, instrumentation, or mediastinal surgeries. Unlikely. --Aortic dissection: The patient does not describe the classical tearing chest pain radiating into the back, and the CXR does not show mediastinal widening or other signs of aortic dissection. Unlikely. --PE: Vitals wnl (not hypoxic, tachycardic or tachypneic). PERC negative. --ACS: The initial EKG shows no ischemic changes. The initial troponin is not elevated. Heart score: 2, low risk. discussed with patient outpatient follow-up, possible stress test. She is adamant about stopping her amlodipine and she thinks this is causing her symptoms, I advised her to continue it for her hypertension and follow-up with her primary care doctor. Given omeprazole to see if she has a GERD component but encouraged her to follow up for further cardiac workup - Diagnoses Provider Diagnoses: Chest pain, Hypothyroidism Discharge ED - Sign-Out/Discharge Documenting (check all that apply): Patient Departure - dc - Discharge Plan Condition: Stable Disposition: HOME Prescriptions: Omeprazole CAP (NF) [Prilosec CAP* 20 MG] 20 mg PO BEDTIME 30 Days #30 buzz. Patient Education Materials: Chest Pain (ED), Hypothyroidism (ED) Referrals: Andrey Corrales MD [Primary Care Provider] - Additional Instructions: You were seen in the emergency department for chest pain. Your EKG (heart tracing), labs and chest x-ray did not show any cause for pain. You can try omeprazole to help with acid reflux. Important that you follow up with you primary care doctor in the next 1-2 days to help schedule an outpatient stress test. Please return to the emergency department for continued chest pain, trouble breathing, passing out, or if you're concerned. - Billing Disposition and Condition Condition: STABLE Disposition: Home - Attestation Statements Document Initiated by Erwin: Yes Documenting Scribe: Emily Rainey Provider For Whom Erwin is Documenting (Include Credential): Dr. Poncho Verdugo MD Scribe Attestation: IEmily, scribed for Dr. Poncho Verdugo MD on 05/22/19 at 1152. Scribe Documentation Reviewed: Yes Provider Attestation: The documentation as recorded by the Emily thorne accurately reflects the service I personally performed and the decisions made by me, Dr. Poncho Verdugo MD Status of Scribivania Document: Viewed
--- OUTSIDE RECORDS SUMMARY | 2019-05-22 10:29 | XMS REPORT | Continuity of Care Document ---
:1975 External Reference #:[id number] Author Name LANA Lopez Address [address] [place] [address] Problems Active Problems Provider Date Chronic kidney disease Onset: 11/18/2017 Caregiver difficulty performing caretaking Onset: 11/03/2015 Depressive disorder Onset: 11/03/2015 Obesity Onset: 06/21/2014 Anemia due to unknown mechanism Andrey Corrales MD Onset: 04/26/2019 Note: HCT Apr Inactive Problems Hypothyroidism Onset: 01/11/2019 Inactive: 01/11/2019 Bacterial vaginosis Onset: 01/11/2019 Inactive: 01/11/2019 Vaginal discharge problem Onset: 01/04/2019 Inactive: 01/04/2019 Increased frequency of urination Onset: 01/04/2019 Inactive: 01/04/2019 Serum TSH level abnormal Onset: 01/04/2019 Inactive: 01/04/2019 Gynecological examination abnormal Onset: 01/04/2019 Inactive: 01/04/2019 Dysuria Onset: 01/04/2019 Inactive: 01/04/2019 Benign essential hypertension Onset: 01/04/2019 Inactive: 01/04/2019 Body mass index 25-29 - overweight Onset: 10/30/2018 Inactive: 10/30/2018 Adult health examination Onset: 10/30/2018 Inactive: 10/30/2018 Social History Type Date Description Comments Sex Unknown Tobacco Use Start: Unknown Patient has never smoked Smoking Status Reviewed: 04/07/19 Patient has never smoked Allergies, Adverse Reactions, Alerts Active Allergies Reaction Severity Comments Date NKDA 03/16/2019 Prednisone 04/27/2019 Medications Active Medications SIG Qnty Indications Ordering Date Provider Elbow Support/Neoprene 1 brace to wear 2units LANA Henry 04/07/2019 Medium on each elbow qhs Misc disp 1 for each arm Levothyroxine Sodium 1 daily Oral; 90tabs Unknown 01/11/2019 take in the 50mcg Tablets morning before you eat Blood Pressure Monitor 1 External 1units Unknown 01/30/2015 Talking Auto-Inflation Med Cuff Misc History Medications Trazodone HCL 1 at bedtime oral; 90tabs G47.00 Hanh Butler, 02/26/2019 - 50mg use as needed LOOP TACKER 03/15/2019 Tablets before bed to improve sleep Metronidazole 1 twice daily 14tabs Unknown 01/11/2019 - 500mg Oral; DO Not 01/18/2019 Tablets consume alcoholic beverages or alcohol containing liquid medications while taking Flagyl Medications Administered in Office Medication SIG Qnty Indications Ordering Provider Date TB Intradermal Test Unknown 11/18/2017 Injection TB Intradermal Test Unknown 10/29/2017 Injection Immunizations CPT Code Status Date Vaccine Lot # [id number] Given 04/07/2019 Flu < 65 years [id number] Given 08/26/2016 Tdap - Boostrix/Adacel Vital Signs Date Vital Result Comment 04/27/2019 4:28pm BP Systolic 142 mmHg BP Diastolic 96 mmHg 04/27/2019 4:21pm Heart Rate 95 /min Body Temperature 97.7 F O2 % BldC Oximetry 98 % Results Test Acquired Date Facility Test Result H/L Range Note Comp Metabolic 04/25/2019 [facility] [place] Sodium 135 mmol/L Normal 135-145 Panel [address] [place] [address] [phone] Potassium 3.3 mmol/L Low 3.5-5.0 Chloride 101 mmol/L Normal 101-111 Co2 Carbon Dioxide 27 mmol/L Normal 22-32 Anion Gap 7 mmol/L Normal 2-11 Glucose 123 mg/dL High 70-100 Blood Urea Nitrogen 12 mg/dL Normal 6-24 Creatinine 0.74 mg/dL Normal 0.51-0.95 BUN/Creatinine Ratio 16.2 Normal 8-20 Calcium 9.2 mg/dL Normal 8.6-10.3 Total Protein 7.5 g/dL Normal 6.4-8.9 Albumin 4.1 g/dL Normal 3.2-5.2 Globulin 3.4 g/dL Normal 2-4 Albumin/Globulin Ratio 1.2 Normal 1-3 Total Bilirubin 0.20 mg/dL Normal 0.2-1.0 Alkaline Phosphatase 70 U/L Normal 34-104 Alt 9 U/L Normal 7-52 Ast 11 U/L Low 13-39 Egfr Non- 86.1 >60 Egfr 104.1 >60 1 Laboratory test 04/25/2019 [facility] [place] Troponin-I 0.00 <0.03 [address] (TnI) ng/mL [place], [place] [id number] [phone] CBC Auto Diff 04/25/2019 [facility] [place] White Blood 6.5 Normal 3.5 -10.[address] Count 10^3/[place] [address] [phone] Red Blood Count 4.52 10^6/uL Normal 3.70-4.87 Hemoglobin 10.8 g/dL Low 12.0-16.0 Hematocrit 33 % Low 35-47 Mean Corpuscular Volume 74 fL Low 80-97 Mean Corpuscular Hemoglobin 24 pg Low 27-31 Mean Corpuscular HGB Conc 33 g/dL Normal 31-36 Red Cell Distribution Width 17 % High 10-15 Platelet Count 475 10^3/uL High 150-450 Mean Platelet Volume 7.0 fL Low 7.4-10.4 Abs Neutrophils 3.8 10^3/uL Normal 1.5-7.7 Abs Lymphocytes 2.1 10^3/uL Normal 1.0-4.8 Abs Monocytes 0.5 10^3/uL Normal 0-0.8 Abs Eosinophils 0.1 10^3/uL Normal 0-0.6 Abs Basophils 0.1 10^3/uL Normal 0-0.2 Abs Nucleated RBC 0.0 10^3/uL Granulocyte % 57.6 % Lymphocyte % 32.5 % Monocyte % 7.7 % Eosinophil % 1.4 % Basophil % 0.8 % Nucleated Red Blood Cells % 0.0 CFM Urine 03/16/2019 [facility] Urine, Microalbumin 30 Microalbumin/Creat R ( )- - Urine, Creatinine, Random 200 Microalb/CR Ratio <30 Laboratory test 02/26/2019 [facility] [place] TSH (Thyroid 4.06 Normal 0.34-5.[address] Stim Horm) mcIU/[place] [address] [phone] WBC-Ua 01/04/2019 N2N/CCD Import WBC-Ua Trace(0-5 Absent [...] N2N/CCD Import Microalbumin abnormal Interpretation Interpretation 1 Because ethnic data is not always readily available, this report includes an eGFR for both -Americans and non- Americans. The National Kidney Disease Education Program (NKDEP) does not endorse the use of the MDRD equation for patients that are not between the ages of 18 and 70, are , have extremes of body size, muscle mass, or nutritional status, or are non- or non-. According to the National Kidney Foundation, irrespective of diagnosis, the stage of the disease is based on the level of kidney function: Stage Description GFR(mL/min/1.73 m(2)) 1 Kidney damage with normal or decreased GFR 90 2 Kidney damage with mild decrease in GFR 60-89 3 Moderate decrease in GFR 30-59 4 Severe decrease in GFR 15-29 5 Kidney failure <15 (or dialysis) 2 Troponin-I testing on Plasma Separator Tubes (PST) has a known false positive rate of 0.20-0.40%. All positive troponins reflex immediately to secondary confirmatory testing. Using the [employer] DxI 800 Access Immunoassay systems, the 99th percentile upper reference limit was demonstrated to be < 0.03 ng/mL. 3 [id number] Procedures Description No Information Available Medical Devices Description No Information Available Encounters Type Date Location Provider Dx Diagnosis Office Visit 04/27/2019 4:30p [facility] LANA Lopez I10 Essential ( primary) hypertension D64.9 Anemia, unspecified Office Visit 04/07/2019 2:45p [facility] LANA Henry M25.531 Pain in right wrist M25.532 Pain in left wrist F41.1 Generalized anxiety disorder Office Visit 03/16/2019 2:30p [facility] Adriana Ward, [facility] I10 Essential ( primary) hypertension Office Visit 02/26/2019 11:00a [facility] Main Hanh Butler, [facility] E03.9 Hypothyroidism, unspecified G47.00 Insomnia, unspecified Assessments Date Code Description Provider 04/27/2019 I10 Essential (primary) hypertension Adriana Ward, [facility] 04/27/2019 D64.9 Anemia, unspecified Adriana Ward, [facility] 04/07/2019 M25.531 Pain in right wrist Hanh Butler, [facility] 04/07/2019 M25.532 Pain in left wrist Hanh Butler, [facility] 04/07/2019 F41.1 Generalized anxiety disorder Hanh Butler, [facility] 03/16/2019 I10 Essential (primary) hypertension Adriana Ward, [facility] 02/26/2019 E03.9 Hypothyroidism, unspecified Hanh Butler, [facility] 02/26/2019 G47.00 Insomnia, unspecified Hanh Butler, [facility] Plan of Treatment 04/27/2019 - Adriana Estradataalissa, [id number] Essential (primary) hypertensionComments:High BPs Potential rxn to prednisone. She has been resistant to treatment of BP and remains. Did start amlodipine yesterday and took today as well. Disc. importance of taking medication daily and following up in office in 2-3 weeks. Sooner if numbers consistently above 150/90. States understanding. I explained to her risks of having untreated HTN. I reviewed EKG with her showing potential of LVH which can be caused by untreated HTN. Reviewed lifestyle techniques to reduce BP as well. Unableto add on to ED BW--will ask her to have Fe studies and TSH drawn tomorrow.D64.9 Anemia, unspecifiedComments: microcytic. will check fe studies. plan TBD dependent on results. Functional Status Description No Information Available Mental Status Description No Information Available Referrals Description No Information Available
[2019-05-22 10:36] LABS: ABS Eosinophils 0.1 10^3/ul (0-0.6); ABS Lymphocytes 1.2 10^3/ul (1.0-4.8); ABS Monocytes 0.4 10^3/ul (0-0.8); ABS Neutrophils 2.9 10^3/ul (1.5-7.7); Eosinophil % 2.4 %; Hematocrit 34 % (35-47); Hemoglobin 10.8 g/dL (12.0-16.0); Lymphocyte % 25.7 %; Mean Corpuscular HGB Conc 32 g/dL (31-36); Mean Corpuscular Hemoglobin 24 pg (27-31); Mean Corpuscular Volume 76 fL (80-97); Mean Platelet Volume 6.9 fL (7.4-10.4); Nucleated Red Blood Cells % 0.7; Platelet Count 417 10^3/uL (150-450); Red Blood Count 4.42 10^6 /uL (3.70-4.87); Red Cell Distribution Width 17 % (10-15); White Blood Count 4.7 10^3/uL (3.5-10.8)
[2019-05-22 11:10] LABS: ALT 10 U/L (7-52); AST 12 U/L (13-39); Albumin/Globulin Ratio 1.3 (1-3); Alkaline Phosphatase 59 U/L (34-104); Anion Gap 5 mmol/L (2-11); BUN/Creatinine Ratio 13.8 (8-20); Blood Urea Nitrogen 13 mg/dL (6-24); CO2 Carbon Dioxide 27 mmol/L (22-32); Chloride 103 mmol/L (101-111); EGFR Non-African American 65.3 (>60); Glucose 103 mg/dL (70-100); Potassium 3.7 mmol/L (3.5-5.0); Sodium 135 mmol/L (135-145)
[2019-05-22 11:17] LABS: HCG Pregnancy < 0.60 mIU/mL
[2019-05-22 11:26] LABS: TSH (Thyroid Stimulating Horm) 5.67 mcIU/mL (0.34-5.60)
[2019-05-22 11:28] LABS: Free T4 0.98 ng/dL (0.61-1.12)
[2019-05-22 12:11] VITALS: BP 132/94
== END 2019-05-22 11:47 | disposition home or self-care (01) ==
LOC: ED 09:43
DX: E03.9 Hypothyroidism, unspecified (principal); R07.89 Other chest pain; R53.83 Other fatigue; I10 Essential (primary) hypertension; K21.9 Gastro-esophageal reflux disease without esophagitis; Z88.0 Allergy status to penicillin
CPT/HCPCS: 36415; 71046; 80053; 84439; 84443; 84702; 85025; 93005; 99283